=== PATIENT | male | born 1940 | race Caucasian/White ===

== ENCOUNTER 2019-01-30 16:41 | Inpatient (IN) | payer OTHER ==
[2019-01-30 18:20] LABS: Absolute Lymphocytes (CBC) 1.1 K/uL (0.7-4.9); Absolute Monocytes 0.7 K/uL (0.1-1.3); Absolute Neutrophil 11.4 K/uL (1.8-8.0); Basophils % 0.4 % (0-1.3); Eosinophils % 0.4 % (0-4.4); Lymphocytes % 8.3 % (15.3-44.8); MPV 8.7 fL (7.6-11.3); Monocytes % 5.3 % (3.3-12.3); RBC Red Blood Cell Count 4.99 M/uL (4.33-5.43)
--- NOTE | 2019-01-30 18:24 | RAD REPORT ---
EXAM DESCRIPTION: Joce Noriega (2 Views)01/30/2019 6:02 pm CLINICAL HISTORY: Fever COMPARISON: None FINDINGS: The lungs appear clear of acute infiltrate. The heart is normal size IMPRESSION: No acute abnormalities displayed
[2019-01-30 18:40] LABS: Albumin 3.9 g/dL (3.4-5.0); Bilirubin Total 0.5 mg/dL (0.2-1.0); Potassium 4.1 mmol/L (3.5-5.1); Protein, Total 8.1 g/dL (6.4-8.2)
[2019-01-30 18:41] LABS: Blood Morphology Comment NOT SEEN (NOT SEEN); Platelet Estimate ADEQ; Urine White Blood Cell Casts OK
[2019-01-30] MEDS ORDERED: ACETAMINOPHEN 325 MG TABLET ONE (19:24)
[2019-01-30] MEDS ORDERED: NA CHLORIDE 0.9% 1,000 ML ONE (19:27)
[2019-01-30 20:02] LABS: Urine Bacteria 20-50 /HPF (NONE SEEN); Urine Culture Reflex Order NOT NEEDED; Urine Mucus 2+ /HPF (NONE SEEN)
[2019-01-30 20:34] LABS: Urine Color YELLOW
[2019-01-30] MEDS ORDERED: CEFTRIAXONE/SWI 1gm 1 GM/10 ML SYR ONE (20:34)
[2019-01-30 20:35] LABS: Urine Appearance CLOUDY; Urine Bilirubin NEGATIVE (NEG); Urine Blood 1+ (NEG); Urine Glucose NEGATIVE (NEG); Urine Microscopic Reflex ORDER UMIC; Urine Protein 1+ (NEG); Urine Urobilinogen 0.2 mg/dL (0.2-1.0)
--- NOTE | 2019-01-30 22:07 | EDPHYS ---
Physician Documentation [facility] Name: Jc Sarabia Age: 78 yrs Sex: Male : 1940 Arrival Date: 01/30/2019 Time: 16:45 Bed 17 Private MD: ED Physician Angel Madsen HPI: 01/30 17:19 This 78 yrs old Male presents to ER via Ambulatory with complaints of Flu jmm Symptoms. 17:19 The patient reports fever, that was measured at 100.5 degrees Fahrenheit. Onset: The jmm symptoms/episode began/occurred today. Associated signs and symptoms: Pertinent positives: backache, chills, headache. This is a 78 year old male with a history of htn that presents to the ED with complaints of back pain, headache, fever beginning today. Denies vomiting, denies diarrhea, denies abdominal pain. Denies cough. . Historical: - Allergies: 16:51 No Known Allergies; sv - PMHx: 16:51 Hypertension; sv - PSHx: 16:51 Hernia repair; SINUS SX; Appendectomy; sv - Immunization history:: Adult Immunizations up to date. - Social history:: Smoking status: Patient/guardian denies using tobacco. - Ebola Screening: : Patient negative for fever greater than or equal to 101.5 degrees Fahrenheit, and additional compatible Ebola Virus Disease symptoms. ROS: 17:19 Cardiovascular: Negative for chest pain, palpitations, and edema, Respiratory: Negative jmm for shortness of breath, cough, wheezing, and pleuritic chest pain, Abdomen/GI: Negative for abdominal pain, nausea, vomiting, diarrhea, and constipation. 17:19 Constitutional: Positive for body aches, fever. 17:19 Back: Positive for pain with movement. 17:19 Neuro: Positive for headache. 17:19 All other systems are negative. Exam: 17:19 Constitutional: This is a well developed, well nourished patient who is awake, alert, jmm and in no acute distress. Head/Face: atraumatic. Eyes: EOMI, no conjunctival erythema appreciated ENT: Moist Mucus Membranes Neck: Trachea midline, Supple Chest/axilla: Normal chest wall appearance and motion. Cardiovascular: Regular rate and rhythm. No edema appreciated Respiratory: Normal respirations, no respiratory distress appreciated 17:19 Abdomen/GI: Inspection: abdomen appears normal, Bowel sounds: normal, Palpation: abdomen is soft and non-tender. 17:19 Back: ROM is normal. 17:19 Musculoskeletal/extremity: ROM: intact in all extremities. 17:19 Skin: Appearance: Color: normal in color. 17:19 Neuro: Orientation: is normal, Mentation: is normal, Memory: is normal. 17:19 Psych: Behavior/mood is pleasant, cooperative. Vital Signs: 16:51 BP 128 / 88; Pulse 118; Resp 18; Temp 98.3(O); Pulse Ox 95% ; Weight 88.45 kg; Height 5 sv ft. 9 in. (175.26 cm); Pain 3/10; 19:50 BP 134 / 78; Pulse 93; Resp 22; Temp 99.0; Pulse Ox 99% on R/A; aj 21:26 BP 129 / 79; Pulse 82; Resp 17; Pulse Ox 98% on R/A; aj 21:55 BP 125 / 73; Pulse 80; Resp 17 S; Pulse Ox 97% on R/A; jd3 22:46 BP 138 / 84; Pulse 81; Resp 16 S; Pulse Ox 98% on R/A; Pain 0/10; jd3 23:50 BP 105 / 75; Pulse 86; Resp 16 S; Pulse Ox 96% on R/A; jd3 16:51 Body Mass Index 28.80 (88.45 kg, 175.26 cm) sv MDM: 17:47 Patient medically screened. [facility] 21:59 Data reviewed: vital signs, nurses notes. Data reviewed: lab test result(s), radiologic [facility] studies, CT scan. Counseling: I had a detailed discussion with the patient and/or guardian regarding: the historical points, exam findings, and any diagnostic results supporting the discharge/admit diagnosis, lab results, radiology results. ED course: I discussed the patient with Dr. Rdz whom accepted admission. . 01/30 17:17 Order name: Flu; Complete Time: 17:55 01/30 17:17 Order name: Strep; Complete Time: 17:47 01/30 17:44 Order name: Throat Culture [facility] 01/30 17:48 Order name: CBC with Diff; Complete Time: 18:42 [facility] 01/30 17:48 Order name: CMP; Complete Time: 18:42 [facility] 01/30 17:48 Order name: Procalcitonin; Complete Time: 18:53 [facility] 01/30 17:48 Order name: Chest Pa And Lat (2 Views) XRAY; Complete Time: 18:42 [facility] 01/30 17:55 Order name: Garfield Screen Profile; Complete Time: 18:42 [facility] 01/30 18:43 Order name: CBC Smear Scan; Complete Time: 18:42 [facility] 01/30 19:30 Order name: Urine Culture 01/30 19:30 Order name: Urine Microscopic Only; Complete Time: 20:06 01/30 19:39 Order name: UA; Complete Time: 21:16 01/30 20:18 Order name: Blood Culture Adult (2) [facility] 01/30 20:19 Order name: Blood Culture [facility] 01/30 17:48 Order name: Saline Lock; Complete Time: 18:06 [facility] 01/30 20:17 Order name: CT Stone Protocol [facility] Administered Medications: 19:11 Drug: Tylenol 650 mg Route: PO; aj 21:50 Follow up: Response: No adverse reaction jd3 19:15 Drug: NS 0.9% 1000 ml Route: IV; Rate: 1 bolus; Site: right antecubital; aj 20:10 Follow up: Response: No adverse reaction; IV Status: Completed infusion; IV Intake: jd3 1000ml 20:30 Drug: Rocephin - (cefTRIAXone) 1 grams Route: IVPB; Infused Over: 30 mins; Site: right aj antecubital; 21:15 Follow up: Response: No adverse reaction; IV Status: Completed infusion jd3 Disposition: 01/30/19 22:06 Hospitalization ordered by Aryan Rdz for Inpatient Admission. Preliminary diagnosis are Acute Pyelonephritis, Acute Kidney Injury. - Bed requested for Telemetry/MedSurg (Inpatient). - Status is Inpatient Admission. jd3 - Condition is Stable. - Problem is new. - Symptoms have improved. UTI on Admission? Yes Addendum: 02/02/2019 07:02 Co-signature as Attending Physician, Angel Madsen MD I agree with the assessment and k dr plan of care. Signatures: Dispatcher [employer] [facility] Annalise Krishna RN RN sv Myers, Amanda, RN RN aj Rittger, Kevin, MD MD kdr Mickail, Joel, PA PA [facility] Aleah Veliz, RN RN cg Cali Bolaños RN RN jd3 Corrections: (The following items were deleted from the chart) 01/30 23:13 22:06 Hospitalization Ordered by Aryan Rdz MD for Inpatient Admission. Preliminary cg diagnosis is Acute Pyelonephritis; Acute Kidney Injury. Bed requested for Telemetry/MedSurg (Inpatient). Status is Inpatient Admission. Condition is Stable. Problem is new. Symptoms have improved. UTI on Admission? Yes. [facility] 01/31 00:16 01/30 23:13 01/30/2019 22:06 Hospitalization Ordered by Aryan Rdz MD for Inpatient jd3 Admission. Preliminary diagnosis is Acute Pyelonephritis; Acute Kidney Injury. Bed requested for Telemetry/MedSurg (Inpatient). Status is Inpatient Admission. Condition is Stable. Problem is new. Symptoms have improved. UTI on Admission? Yes. cg
--- NOTE | 2019-01-30 22:07 | ER ---
Nurse's Notes [facility] Name: Jc Sarabia Age: 78 yrs Sex: Male : 1940 Arrival Date: 01/30/2019 Time: 16:45 Bed 17 Private MD: Diagnosis: Acute Pyelonephritis;Acute Kidney Injury Presentation: 01/30 16:50 Presenting complaint: Patient states: abd cramping, cough, chills, fever TMax 100.5 sv since today. Denies n/v. Transition of care: patient was not received from another setting of care. Onset of symptoms was January 30, 2019. Care prior to arrival: None. 16:50 Method Of Arrival: Ambulatory sv 16:50 Acuity: QUYEN 3 sv 21:56 Risk Assessment: Do you want to hurt yourself or someone else? Patient reports no jd3 desire to harm self or others. Initial Sepsis Screen: Does the patient meet any 2 criteria? No. Patient's initial sepsis screen is negative. Does the patient have a suspected source of infection? No. Patient's initial sepsis screen is negative. Triage Assessment: 16:50 General: Appears in no apparent distress. uncomfortable, Behavior is calm, cooperative, sv appropriate for age. General: Reports chills for 12-24 hours, fever for 12-24 hours. Pain: Complains of pain in abdomen Pain currently is 3 out of 10 on a pain scale. Quality of pain is described as crampy, Pain began this morning. Neuro: Level of Consciousness is awake, alert, obeys commands, Oriented to person, place, time, situation, Gait is steady. Respiratory: Reports cough that is non-productive, Respiratory effort is even, unlabored, Respiratory pattern is regular, symmetrical. GI: Patient currently denies nausea, vomiting. Historical: - Allergies: 16:51 No Known Allergies; sv - PMHx: 16:51 Hypertension; sv - PSHx: 16:51 Hernia repair; SINUS SX; Appendectomy; sv - Immunization history:: Adult Immunizations up to date. - Social history:: Smoking status: Patient/guardian denies using tobacco. - Ebola Screening: : Patient negative for fever greater than or equal to 101.5 degrees Fahrenheit, and additional compatible Ebola Virus Disease symptoms. Screenin:34 Abuse screen: Denies threats or abuse. Denies injuries from another. Nutritional aj screening: No deficits noted. Tuberculosis screening: No symptoms or risk factors identified. Fall Risk None identified. Assessment: 17:34 General: Appears in no apparent distress. comfortable, Behavior is calm, cooperative, aj appropriate for age. Pain: Denies pain. Neuro: Level of Consciousness is awake, alert, obeys commands, Oriented to person, place, time, situation, Appropriate for age. Respiratory: Airway is patent Respiratory effort is even, unlabored, Respiratory pattern is regular, symmetrical. Derm: Skin is intact, is healthy with good turgor, Skin is pink, warm \T\ dry. normal. 21:26 Reassessment: Patient appears in no apparent distress at this time. No changes from aj previously documented assessment. Patient and/or family updated on plan of care and expected duration. Pain level reassessed. Patient states feeling better. Patient states symptoms have improved. 21:54 Reassessment: Patient appears in no apparent distress at this time. Patient and/or jd3 family updated on plan of care and expected duration. Pain level reassessed. Patient is alert, oriented x 3, equal unlabored respirations, skin warm/dry/pink. Patient denies pain at this time. 22:46 Reassessment: Patient appears in no apparent distress at this time. Patient and/or jd3 family updated on plan of care and expected duration. Pain level reassessed. Patient is alert, oriented x 3, equal unlabored respirations, skin warm/dry/pink. Patient denies pain at this time. 23:49 Reassessment: Patient appears in no apparent distress at this time. Patient and/or jd3 family updated on plan of care and expected duration. Pain level reassessed. Patient is alert, oriented x 3, equal unlabored respirations, skin warm/dry/pink. report given to Dorothy SERRANO Patient denies pain at this time. Vital Signs: 16:51 BP 128 / 88; Pulse 118; Resp 18; Temp 98.3(O); Pulse Ox 95% ; Weight 88.45 kg; Height 5 sv ft. 9 in. (175.26 cm); Pain 3/10; 19:50 BP 134 / 78; Pulse 93; Resp 22; Temp 99.0; Pulse Ox 99% on R/A; aj 21:26 BP 129 / 79; Pulse 82; Resp 17; Pulse Ox 98% on R/A; aj 21:55 BP 125 / 73; Pulse 80; Resp 17 S; Pulse Ox 97% on R/A; jd3 22:46 BP 138 / 84; Pulse 81; Resp 16 S; Pulse Ox 98% on R/A; Pain 0/10; jd3 23:50 BP 105 / 75; Pulse 86; Resp 16 S; Pulse Ox 96% on R/A; jd3 16:51 Body Mass Index 28.80 (88.45 kg, 175.26 cm) sv ED Course: 16:45 Patient arrived in ED. mr 16:51 Triage completed. sv 16:52 Arm band placed on. sv 17:08 Alma Rosa Franco, RN is Primary Nurse. aj 17:18 Tra Funk PA is PHCP. jmm 17:18 Angel Madsen MD is Attending Physician. jmm 17:34 Patient has correct armband on for positive identification. aj 18:02 Chest Pa And Lat (2 Views) XRAY In Process Unspecified. EDMS 18:13 Initial lab(s) drawn, by me, sent to lab. Inserted saline lock: 20 gauge in right em1 antecubital area, using aseptic technique. Blood collected. 21:05 CT completed. Patient tolerated procedure well. Patient moved to CT via wheelchair. Patient moved back from CT. 21:06 CT Stone Protocol In Process Unspecified. EDMS 22:04 Aryan Rdz MD is Hospitalizing Provider. [facility] 23:51 No provider procedures requiring assistance completed. Patient admitted, IV remains in jd3 place. Administered Medications: 19:11 Drug: Tylenol 650 mg Route: PO; aj 21:50 Follow up: Response: No adverse reaction jd3 19:15 Drug: NS 0.9% 1000 ml Route: IV; Rate: 1 bolus; Site: right antecubital; aj 20:10 Follow up: Response: No adverse reaction; IV Status: Completed infusion; IV Intake: jd3 1000ml 20:30 Drug: Rocephin - (cefTRIAXone) 1 grams Route: IVPB; Infused Over: 30 mins; Site: right aj antecubital; 21:15 Follow up: Response: No adverse reaction; IV Status: Completed infusion jd3 Intake: 20:10 IV: 1000ml; Total: 1000ml. jd3 Outcome: 22:06 Decision to Hospitalize by Provider. alena 23:52 Admitted to Med/surg accompanied by tech, via wheelchair, room 225, with chart, Report jd3 called to Dorothy SERRANO 23:52 Condition: stable 23:52 Instructed on the need for admit, Demonstrated understanding of instructions. 01/31 00:16 Patient left the ED. kenyetta Signatures: Dispatcher [employer] EDAnnalise Lemon RN RN sv Myers, Amanda, RN RN aj Mickail, Joel, PA PA jmm Rivera, Diana mr Aaron, Patrick Mcmillan, Bart [facility] Cali Bolaños RN RN jd3 Corrections: (The following items were deleted from the chart) 01/30 16:53 16:51 BP 128 / 88; Pulse 118bpm; Resp 18bpm; Pulse Ox 95%; 88.45 kg; Height 5 ft. 9 sv in.; BMI: 28.8; Pain 3/10; sv
--- NOTE | 2019-01-30 22:58 | P.HP ---
Certification for Inpatient Patient admitted to: Inpatient With expected LOS: >2 Midnights Practitioner: I am a practitioner with admitting privileges, knowledge of patient current condition, hospital course, and medical plan of care. Services: Services provided to patient in accordance with Admission requirements found in Title 42 Section 412.3 of the Code of Federal Regulations Patient History Date of Service: 01/30/19 Reason for admission: pyelonephritis History of Present Illness: Mr Sarabia is a 78 years old male with history of HTN, who start this afternoon with chills, fever and lower abdominal pain. His max temp was 100.5 F. He denied nausea, vomiting or diarrhea. He also has been complaining of lower back pain, but no modification in intensity lately. He denied painful urination, change in color, odor or increasing frequency. Lab work remarkable for leukocytosis 13.4K, procalcitonin normal. Creatinine elevated 1.62 (baseline normal). Temp at arrival 99.0F. CT abd/pelvis remarkable for a non obsturective right kidney stone. also bilateral prinephric stranding and trace free fluid consistent with pyelonephritis. Allergies NK Allergy (Uncoded 10/05/15 10:43) Unknown Home medications list reviewed: Yes - Past Medical/Surgical History -: HTN -: hernia repair -: appendectomy -: sinus surgery - Family History Family History: Reviewed- Non-Contributory - Social History Smoking Status: Former smoker Alcohol use: Yes CD- Drugs: No Place of Residence: Home Review of Systems 10-point ROS is otherwise unremarkable Physical Examination - Physical Exam General: Alert, In no apparent distress HEENT: Atraumatic, PERRLA, Mucous membr. moist/pink, EOMI, Sclerae nonicteric Neck: Supple, 2+ carotid pulse no bruit, No LAD, Without JVD or thyroid abnormality Respiratory: Clear to auscultation bilaterally, Normal air movement Cardiovascular: Regular rate/rhythm, Normal S1 S2 Gastrointestinal: Normal bowel sounds, No tenderness Musculoskeletal: No tenderness Integumentary: No rashes Neurological: Normal speech, Normal strength at 5/5 x4 extr, Normal tone, Normal affect Lymphatics: No axilla or inguinal lymphadenopathy - Studies Laboratory Data (last 24 hrs) 01/30/19 18:10: Sodium 142, Potassium 4.1, BUN 23 H, Creatinine 1.62 H, Glucose 103, Total Bilirubin 0.5, AST 14 L, ALT 17, Alkaline Phosphatase 60 01/30/19 18:10: WBC 13.4 H, Hgb 13.7, Hct 42.0, Plt Count 215 Microbiology Data (last 24 hrs): 01/30/19 17:22 Nasopharnyx Influenza Type A Antigen Screen - Final 01/30/19 17:22 Nasopharnyx Influenza Type B Antigen Screen - Final 01/30/19 17:22 Throat Group A Streptococcus Rapid Screen - Final Assessment and Plan - Problems (Diagnosis) (1) Pyelonephritis Current Visit: Yes Status: Acute (2) HTN (hypertension) Current Visit: Yes Status: Acute Qualifiers: Hypertension type: essential hypertension Qualified Code(s): I10 - Essential (primary) hypertension (3) Acute renal injury Current Visit: Yes Status: Acute (4) Nephrolithiasis Current Visit: Yes Status: Acute - Plan Will admit the patient due to acute bilateral pyelonephritis. Will order empiric antibiotic treatment, blood and urine culture in process. Will continue fluid challenge for renal failure. - Advance Directives Does patient have a Living Will: No Does patient have a Durable POA for Healthcare: No - Code Status/Comfort Care Code Status Assessed: Yes Code Status: Full Code
[2019-01-31] MEDS ORDERED: TRAMADOL HCL 50 MG TAB PO PRN (00:10)
[2019-01-31] MEDS ORDERED: ONDANSETRON 4 MG/2 ML VIAL IV PRN (00:10)
[2019-01-31] MEDS: NA CHLORIDE 0.9% 1,000 ML IV SCH ×3 (00:54→21:39)
[2019-01-31] MEDS: ACETAMINOPHEN 500 MG TAB PO PRN (02:48)
[2019-01-31 06:04] LABS: Absolute Lymphocytes (CBC) 0.6 K/uL (0.7-4.9); Absolute Monocytes 0.8 K/uL (0.1-1.3); Basophils % 0.5 % (0-1.3); Eosinophils % 0.3 % (0-4.4); Hematocrit 35.3 % (39.6-49.0); Lymphocytes % 4.9 % (15.3-44.8); MPV 8.7 fL (7.6-11.3); Monocytes % 6.8 % (3.3-12.3); RBC Red Blood Cell Count 4.26 M/uL (4.33-5.43)
[2019-01-31 06:20] LABS: Potassium 3.8 mmol/L (3.5-5.1)
[2019-01-31] MEDS ORDERED: MAGNESIUM SULFATE 1 gm IVPB 1 GM/100 ML BAG IV ONE (08:00)
[2019-01-31] MEDS ORDERED: POTASSIUM 25 MEQ EFFERV TAB PO ONE (08:00)
[2019-01-31] MEDS ORDERED: HYDROCODONE/APAP 7.5/325 MG TAB PO PRN (08:09)
[2019-01-31] MEDS ORDERED: CEFTRIAXONE 1 GM/NS 50 ML 1 GM/50 ML BAG IV SCH (09:00)
[2019-01-31] MEDS: HEPARIN 5000 UNIT/ML 1 ML VIAL SQ SCH ×2 (09:09→22:01)
--- NOTE | 2019-01-31 12:30 | P.PN ---
Subjective Date of Service: 01/31/19 Primary Care Provider: Dr. Chappell Chief Complaint: pyelonephritis Subjective: Improving (Pain to the back improved.) Physical Examination - Vital Signs Temperature: 99.6 F Blood Pressure: 120/64 Pulse: 68 Respirations: 20 Pulse Ox (%): 98 - Physical Exam General: Alert, In no apparent distress, Cooperative HEENT: Atraumatic Neck: Supple Respiratory: Clear to auscultation bilaterally, Normal air movement Cardiovascular: Normal pulses, Regular rate/rhythm Gastrointestinal: Normal bowel sounds, Soft and benign, Non-distended, Tenderness (To the flank bilateral) Neurological: Normal speech, Normal strength at 5/5 x4 extr, Normal tone, Normal affect - Studies Laboratory Data (last 24 hrs) 01/30/19 18:10: Sodium 142, Potassium 4.1, BUN 23 H, Creatinine 1.62 H, Glucose 103, Total Bilirubin 0.5, AST 14 L, ALT 17, Alkaline Phosphatase 60 01/30/19 18:10: WBC 13.4 H, Hgb 13.7, Hct 42.0, Plt Count 215 Microbiology Data (last 24 hrs): 01/30/19 17:22 Nasopharnyx Influenza Type A Antigen Screen - Final 01/30/19 17:22 Nasopharnyx Influenza Type B Antigen Screen - Final 01/30/19 17:22 Throat Group A Streptococcus Rapid Screen - Final Medications List Reviewed: Yes Assessment & Plan Discharge Plan: Home Plan to discharge in: Greater than 2 days Physician Review Additional Text: Impression: Bilateral pyelonephritis with noted acute renal injury with nonobstructing right renal calculi Hypertension BPH Plan: Bilateral pyelonephritis with noted acute renal injury with nonobstructing right renal calculi: Continue with IV fluids and antibiotic therapy. No obstruction noted. Will check renal ultrasound to further evaluate. No obstruction identified. Will consult nephrology for further recommendation. Patient with BPH symptoms. Will start Flomax. Will check PSA. Will continue to monitor and reassess. Cultures obtained. Likely discharge in the next 48- 72 hr. Hypertension: Hold blood pressure medication. BPH: Will start Flomax. Will check PSA. Time Spent Managing Pts Care (In Minutes): 55
--- NOTE | 2019-01-31 15:15 | CON ---
Date of Consultation: 01/31/2019 Additional Consulting Physician: Dr. Lake. Reason For Consultation: Elevated BUN and creatinine, hypertension. History Of Present Illness: This is a pleasant 78-year-old gentleman with significant past medical h istory of only hypertension for the last 15 years. According to the patient, the patient followed up with Dr. Chappell who mentioned to him that he has some fluctuation in his kidney function few months ago, but he has been stable following with Dr. Chappell. Reviewing the record, it looked that his kidn ey function was completely normal back in 2015. The patient came to the hospital complaining from fe elizabeth and chills without any nausea and vomiting, found to have UTI. The patient also complaining from dysuria and nocturia. Over the night, the patient was started on IV fluid. The patient according to him, apparently, he ta eliz nonsteroid randomly just to maybe once a week, otherwise no other frequent intake. Allergies: NO KNOWN DRUG ALLERGIES. Review of Systems: Head and Neck: No red eye. No ear pain. GI: No nausea, no vomiting. : Has dysuria. Has nocturia. SLATE ROOFER: Not applicable. Respiratory: No shortness of breath. Cardiovascular: No chest pain. Endocrine: No polydipsia. Skin: No rash. Neuro: No neuropathy. Musculoskeletal: Has low back pain. Medications: Home medications include candesartan and chlorthalidone. Current medications in the hospital include ceftriaxone, hydrocodone, Zofran, and Flomax. Surgical History: Has knee surgery, has hydrocele, has appendectomy. Family History: Positive for renal cell resection. Physical Examination: Vital Signs: When I saw the patient, blood pressure 120/64, pulse of 68. Chest: Clear to auscultation. Heart: S1, S2. Regular. Abdomen: Soft, nontender. Extremities: No edema. Neurological: Oriented x3. Nonfocal. Laboratory Data: For the patient back in October 2015, H and H 14.1/43.4. Creatinine 1.08, BUN 22, GFR above 60. On admission, sodium 142, potassium 4.1, bicarb 28, BUN 23, creatinine 1.6, calcium 8 .7. Procalcitonin 0.3. Today, sodium 141, potassium 3.8, bicarb 25, BUN 29, creatinine 1.7, calcium of 8. WBC 11.4, H and H 12.2/35.3, platelets 175. Urinalysis, wbc 50, rbc of 20, +1 protein. Current Medications: In the hospital include IV fluid, Flomax, ceftriaxone, Tylenol, Zofran, magnesi um oxide, and pain medication. Assessment And Plan: 1.Acute kidney injury secondary to prerenal superimposed with chlorthalidone and angiotensin recepto r ranjit, still looks to me on the dry side. I am going to continue current hydration. We will get renal ultrasound and protein creatinine, and we will follow up. 2.Urinary tract infection. I agree with current antibiotic. We will follow up culture. 3.Hypertension, currently hypotension. Hold all blood pressure medication given the acute kidney in jury. 4.Urosepsis, as above. ALFONSO Voice ID: [id number] Report ID: [id number]
--- NOTE | 2019-01-31 18:42 | RAD REPORT ---
EXAM DESCRIPTION: US - Renal Ultrasound-Complete - 01/31/2019 6:34 pm CLINICAL HISTORY: B. Pyelonephritis, suspect BPH COMPARISON: ABDOMINAL EXAM COMPLETE dated 09/19/2015ABDOMINAL EXAM COMPLETE dated 09/19/2015; Stone Pr otocol dated 01/30/2019 FINDINGS: Both kidneys are normal in size, shape and echotexture. The right kidney measures 11.5 x 5.5 x 5.5 cm. No hydronephrosis, focal mass or perinephric fluid. Se veral benign right renal cysts, largest measuring 3.6 cm. The left kidney measures 11.3 x 6.7 x 6.0 cm. No hydronephrosis, focal mass or perinephric fluid. The urinary bladder is incompletely distended without gross abnormality seen. IMPRESSION: Benign right renal cysts, otherwise negative study.
[2019-01-31 18:52] LABS: Urine Protein/Creatinine Ratio 0.4 ratio (<0.15)
[2019-01-31] MEDS: CEFTRIAXONE/SWI 1gm 1 GM/10 ML SYR IV SCH (22:00)
[2019-01-31] MEDS: TAMSULOSIN 0.4 MG SR CAP PO SCH (22:00)
[2019-02-01 06:04] LABS: Absolute Lymphocytes (CBC) 1.2 K/uL (0.7-4.9); Absolute Monocytes 0.6 K/uL (0.1-1.3); Absolute Neutrophil 3.6 K/uL (1.8-8.0); Eosinophils % 5.6 % (0-4.4); Hematocrit 31.6 % (39.6-49.0); Lymphocytes % 21.1 % (15.3-44.8); Monocytes % 9.7 % (3.3-12.3); RBC Red Blood Cell Count 3.76 M/uL (4.33-5.43)
[2019-02-01 06:09] LABS: Magnesium 2.2 mg/dL (1.8-2.4); Potassium 4.1 mmol/L (3.5-5.1)
--- NOTE | 2019-02-01 08:55 | P.PN ---
Subjective Date of Service: 02/01/19 Primary Care Provider: Dr. Chappell Chief Complaint: pyelonephritis Subjective: Doing well, Other (Patient much improved. Patient ambulating well. No pain noted.) Physical Examination - Vital Signs Temperature: 97.1 F Blood Pressure: 122/67 Pulse: 63 Respirations: 16 Pulse Ox (%): 96 - Physical Exam General: Alert, In no apparent distress, Oriented x3, Cooperative HEENT: Atraumatic Neck: Supple Respiratory: Clear to auscultation bilaterally, Normal air movement Cardiovascular: No edema, Normal pulses, Regular rate/rhythm Gastrointestinal: Normal bowel sounds, Soft and benign, Non-distended, No tenderness, No masses, No rebound, No guarding Musculoskeletal: No erythema, No tenderness, No warmth Integumentary: No tenderness/swelling, No erythema, No warmth, No cyanosis Neurological: Normal speech, Normal strength at 5/5 x4 extr, Normal tone, Normal affect - Studies Microbiology Data (last 24 hrs): 01/30/19 17:22 Throat Culture & Sensitivity - Final NORMAL UPPER RESPIRATORY REGINO GROWN. 01/30/19 19:40 Clean Catch Urine [place] Count - Final 01/30/19 19:40 Clean Catch Urine - Final No growth. Medications List Reviewed: Yes Assessment & Plan Discharge Plan: Home Plan to discharge in: 24 Hours Physician Review Additional Text: Impression: Bilateral pyelonephritis with noted acute renal injury likely secondary to pre renal/omtqhvclwn-rmjvyudddxuezd-Edz inhibitor with nonobstructing right renal calculi Hypertension BPH Plan: Bilateral pyelonephritis with noted acute renal injury likely secondary to pre renal/emguwmmejc-bntegdvevbhmhi-Qzc inhibitor with nonobstructing right renal calculi: Continue with IV fluids and antibiotic therapy. Await urine culture results. So far negative. Patient significantly improved. Patient without pain. No obstruction identified. Blood pressure remained stable off chlorthalidone and Arb inhibitor. Continue monitor closely. Renal function remains abnormal. Patient desires to go home soon. Will discuss with nephrology. Likely discharge in the next 24 to 48 hr with improvement of renal function. Will continue with Flomax. Patient will require Urology evaluation as an outpatient. I will turn the service over to Dr. Nur tomorrow. I will go over the plan of care with her. Hypertension: Continue to hold chlorthalidone and Arb inhibitor. Blood pressure stable off medication. BPH: Continue with Flomax. PSA unremarkable. Patient will require Urology evaluation as an outpatient. Time Spent Managing Pts Care (In Minutes): 55
[2019-02-01] MEDS: HEPARIN 5000 UNIT/ML 1 ML VIAL SQ SCH ×2 (09:33→21:33)
[2019-02-01] MEDS: NA CHLORIDE 0.9% 1,000 ML IV SCH ×3 (09:33→18:18)
--- NOTE | 2019-02-01 18:38 | PN ---
Date of Progress Note: 02/01/2019 Subjective: The patient was admitted with acute kidney injury. All workup so far negative. The pat ient was started on IV hydration. Physical Examination: Vital Signs: Blood pressure 122/67, pulse of 63, afebrile. The patient had good urine output of 950 . Chest: Clear to auscultation. Heart: S1, S2. Systolic murmur. Abdomen: Soft, nontender. Extremities: No edema. Neuro: Alert, oriented x3. No focal. Skin: No rash. Laboratory Data: WBC 5.8, H and H 10.8/31.6, and platelet 156. Eosinophil 5.6. Elevated absolute c ount of eosinophil of 300. Sodium 145, potassium 4.1, bicarb 24, BUN 26, creatinine worsening to 2, GFR of 32, calcium 8.3, magnesium 2.2. Current Medications: Include ceftriaxone, Flomax, Tylenol, Zofran, IV fluid. Assessment And Plan: 1.Acute kidney injury. Normal size kidney. Obstruction has been ruled. 11.5 x 11.3 all the multip le cysts. Given the peripheral eosinophilia and the history of taking PPI and getting sick with it, I am going to send for urine eosinophil. Our primary diagnosis was secondary to chlorthalidone and A RB, but the patient is not showing improvement with the IV fluid. I am going to go ahead and send fo r full serology also and we will follow up. 2.Hypertension, controlled, optimal. Continue current medication. 3.Gastroenteritis. Keep holding PPI for the time being. Continue hydration. ALFONSO Voice ID: [id number] Report ID: [id number]
[2019-02-01] MEDS: TAMSULOSIN 0.4 MG SR CAP PO SCH (21:32)
[2019-02-01] MEDS: CEFTRIAXONE/SWI 1gm 1 GM/10 ML SYR IV SCH (21:32)
[2019-02-02] MEDS: NA CHLORIDE 0.9% 1,000 ML IV SCH (04:31)
[2019-02-02 06:25] LABS: Absolute Lymphocytes (CBC) 1.1 K/uL (0.7-4.9); Absolute Monocytes 0.4 K/uL (0.1-1.3); Absolute Neutrophil 2.8 K/uL (1.8-8.0); Eosinophils % 4.8 % (0-4.4); Hematocrit 32.4 % (39.6-49.0); Lymphocytes % 24.5 % (15.3-44.8); MPV 8.9 fL (7.6-11.3); Monocytes % 8.9 % (3.3-12.3); RBC Red Blood Cell Count 3.86 M/uL (4.33-5.43)
[2019-02-02] MEDS: ACETAMINOPHEN 500 MG TAB PO PRN (06:29)
[2019-02-02 06:39] LABS: Albumin 2.9 g/dL (3.4-5.0); Magnesium 2.1 mg/dL (1.8-2.4); Phosphorus 2.8 mg/dL (2.5-4.9); Potassium 3.9 mmol/L (3.5-5.1)
[2019-02-02] MEDS: HEPARIN 5000 UNIT/ML 1 ML VIAL SQ SCH (09:00)
--- NOTE | 2019-02-02 11:53 | RAD REPORT ---
EXAM DESCRIPTION: Stone Protocol CLINICAL HISTORY: 78 years Male BACK PAIN, UTI, fever TECHNIQUE: Contiguous axial images obtained through the abdomen and pelvis without IV contrast. Co villa and sagittal reformatted images provided. This CT exam was performed according to our departmental dose-optimization program, which includes on e or more of the following dose reduction techniques: automated exposure control, adjustment of the m A and/or kV according to patient size, and/or use of iterative reconstruction technique. COMPARISON: No prior exams provided for comparison. FINDINGS: Stable 4 mm nonobstructing calculus in the midpole of the left kidney. There are no other renal, ureteral, or bladder calculi. New since the prior exam is bilateral perinephric stranding with out loculated fluid collection. Small bilateral renal cysts again seen. Trace free fluid in the pelvis new since the prior exam. The urinary bladder is collapsed. Mild promi nence of the prostate. Prior appendectomy. There is no bowel inflammation, obstruction, free intraperitoneal air, or ascites . Evidence of prior granulomatous disease in the chest and spleen. Minimal bibasilar scarring vs. atele ctasis. The unenhanced liver, biliary tree, gallbladder, and pancreas are normal. Stable low-attenuation thickening of the adrenal glands, likely benign. Mild atherosclerosis without abdominal aortic aneurysm or acute retroperitoneal hemorrhage. No acute osseous abnormality. IMPRESSION: Stable single nonobstructing intrarenal calculus on the right. No urinary obstruction. New bilateral perinephric stranding and trace free fluid in the pelvis. Correlation with urinalysis r ecommended to exclude infection. Mild prominence of the prostate. Electronically signed by: Elma Euceda MD 01/30/2019 9:16 PM CDT Due to temporary technical issues with the PACS/Fluency reporting system, reports are being signed by the in house radiologist as a courtesy to ensure prompt reporting. The interpreting radiologist is f ully responsible for the content of the report.
--- NOTE | 2019-02-02 17:26 | P.DS ---
Admission Date: 01/30/19 Discharge Date: 02/02/19 Primary Care Provider: Dr. Chappell Disposition: ROUTINE DISCHARGE Discharge Condition: GOOD Reason for Admission: pyelonephritis Consultations: Nephrology - Problems (1) Acute renal injury Status: Acute (2) Pyelonephritis Status: Acute (3) HTN (hypertension) Status: Acute Qualifiers: Hypertension type: essential hypertension Qualified Code(s): I10 - Essential (primary) hypertension Brief History of Present Illness: Mr Sarabia is a 78 years old male with history of HTN, who start this afternoon with chills, fever and lower abdominal pain. His max temp was 100.5 F. He denied nausea, vomiting or diarrhea. He also has been complaining of lower back pain, but no modification in intensity lately. He denied painful urination, change in color, odor or increasing frequency. Lab work remarkable for leukocytosis 13.4K, procalcitonin normal. Creatinine elevated 1.62 (baseline normal). Temp at arrival 99.0F. CT abd/pelvis remarkable for a non obsturective right kidney stone. also bilateral prinephric stranding and trace free fluid consistent with pyelonephritis. Hospital Course: Overall during the hospital stay patient remained stable Patient was initially admitted to the hospital for acute kidney injury along with high arthritis. Patient had urine culture collected here in the hospital which was negative for any growth. Initially patient also had elevated creatinine and was kept on IV fluids here in the hospital and chlorthalidone and Arb was discontinued. Patient had marked improvement in his creatinine and had improvement in his acute kidney injury. At that time patient was switched over to oral Augmentin and was discharged home under stable condition was asked to follow up with primary care provider along with nephrology. This patient was also asked to continue with discontinuation of his chlorthalidone and his Arb Vital Signs/Physical Exam: Temp Pulse Resp BP Pulse Ox 97.9 F 60 15 129/71 97 02/02/19 12:00 02/02/19 12:00 02/02/19 12:00 02/02/19 12:02/02/19 12:00 General: Alert, In no apparent distress HEENT: Atraumatic, PERRLA, EOMI Neck: Supple, JVD not distended Respiratory: Clear to auscultation bilaterally, Normal air movement Cardiovascular: Regular rate/rhythm, Normal S1 S2 Gastrointestinal: Normal bowel sounds, No tenderness Musculoskeletal: No tenderness Integumentary: No rashes Neurological: Normal speech, Normal tone, Normal affect Lymphatics: No axilla or inguinal lymphadenopathy Laboratory Data at Discharge: WBC 4.6 K/uL (4.3-10.9) D 02/02/19 05:49 Hgb 10.8 g/dL (13.6-17.9) L 02/02/19 05:49 Hct 32.4 % (39.6-49.0) L 02/02/19 05:49 Plt Count 179 K/uL (152-406) 02/02/19 05:49 Sodium 146 mmol/L (136-145) H 02/02/19 05:49 Potassium 3.9 mmol/L (3.5-5.1) 02/02/19 05:49 BUN 24 mg/dL (7-18) H 02/02/19 05:49 Creatinine 1.80 mg/dL (0.55-1.3) H 02/02/19 05:49 Glucose 82 mg/dL (74-106) 02/02/19 05:49 Phosphorus 2.8 mg/dL (2.5-4.9) 02/02/19 05:49 Magnesium 2.1 mg/dL (1.8-2.4) 02/02/19 05:49 Total Bilirubin 0.5 mg/dL (0.2-1.0) 01/30/19 18:10 AST 14 U/L (15-37) L 01/30/19 18:10 ALT 17 U/L (12-78) 01/30/19 18:10 Alkaline Phosphatase 60 U/L (45-117) 01/30/19 18:10 Home Medications: Amoxicillin/Potassium Clav [Augmentin 500-125 Tablet] 1 each PO DAILY #7 tablet 02/02/19 New Medications: Amoxicillin/Potassium Clav [Augmentin 500-125 Tablet] 1 each PO DAILY #7 tablet Patient Discharge Instructions: Please f.u with PCP and Nephrology in 1 to 2 week post discharge. New medication. Augmentin 500mg q24h Daily Diet: Regular Activity: Ad barak Followup: Rufina Lim MD [ACTIVE - CAN ADMIT] - 1 Week
--- NOTE | 2019-02-03 02:04 | PN ---
Date of Progress Note: 02/02/2019 Chief Complaint: Acute kidney injury. History Of Present Illness: Acute kidney injury, nonoliguric, moderately severe. Creatinine level w as elevated with high BUN and creatinine ratio and borderline hypernatremia. The patient was started on IV fluids for hypovolemia and mild dehydration. The patient had kidney ultrasound done, which di d not show obstructive uropathy. There were multiple kidney cysts. 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 The patient was taken off angiotensin receptor ranjit and chlorthalidone wa s stopped to prevent renal hypoperfusion and renal function has improved somewhat with IV fluids and modification of the treatment. The patient was started on Flomax to control lower urinary tract symptoms and prevent urinary frequen cy, although there was no hydronephrosis visible on kidney ultrasound. Review of Systems: Denies fever, chills. Physical Examination: Lungs: Clear to auscultation bilaterally. Heart: S1, S2. Blood pressure is 122/60, heart rate 60. Abdomen: Soft, benign, nontender. No CVA tenderness. Extremities: No edema. Cardiovascular: S1, S2. Systolic murmur 2/6 left lower sternal border. Laboratory Data: Hemoglobin 10.8, WBC 4.6, platelet count is 179,000, neutrophils 2.8. Eosinophils 0.2, which is at this point stabilizing with absolute eosinophil level being at normal range. Chemis tries showed sodium 146, potassium 3.9, chloride 114, CO2 25, BUN 24, creatinine 1.8, albumin 2.9. U rinalysis showed rbc's from 10-20, WBC from 20-50. Proteinuria screen is pending. Protein creatinin e ratio was 0.4 and serology test pending to rule out vasculitis. Impression And Plan: 1.Acute on chronic kidney injury. The patient responded to IV fluids. The patient has nonoliguric urine output. He is requesting to be discharged to home. Plan is to continue adequate hydration by mouth and to replace angiotensin receptor ranjit with calcium channel ranjit for blood pressure con trol. The patient will continue Flomax for lower urinary tract symptoms. 2.Hypertension. Continue blood pressure medication, currently blood pressure in good control. 3.History of gastroenteritis. The patient will continue hydration and monitor fluid balance. 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 The patient wants to follow up with Nephr ology outpatient. EVA/HUNG Voice ID: [id number] Report ID: [id number]
[2019-02-03 23:46] LABS: Rheumatoid Factor NEG (NEG)
[2019-02-04 18:06] LABS: Hepatitis C Virus RNA (PCR)log <1.18 log IU/mL
[2019-02-04 20:15] LABS: HIV AG/AB 4TH GEN Non-reactive (Non-reactive)
[2019-02-06 02:53] LABS: HBsAG Nonreactive (Nonreactive)
[2019-02-06 08:27] LABS: P-ANCA Anti-Myeloperoxidase Ab <1.0 AI (<1.0)
[2019-02-06 23:13] LABS: Alpha-1-Globulins 0.3 g/dL (0.2-0.3); Alpha-2-Globulins 0.7 g/dL (0.5-0.9); Gamma Globulins 1.2 g/dL (0.8-1.7); INTERPRETATION REPORT
== END 2019-02-02 14:49 | disposition home or self-care (01) | DRG 690 ==
LOC: ER 16:41 → ERHOLD 22:54 → 2ND 23:59
PROVIDERS: ADMIT Internal Medicine; ATTEND Internal Medicine
DX: N10 Acute pyelonephritis (principal); N17.9 Acute kidney failure, unspecified; I10 Essential (primary) hypertension; K52.9 Noninfective gastroenteritis and colitis, unspecified; N20.0 Calculus of kidney; Z87.891 Personal history of nicotine dependence
CPT/HCPCS: 36415; 71046; 74176; 76377; 76770; 80048; 80053; 80069; 81003; 81015; 82570; 83520; 83735; 84145; 84156; 84165; 85025; 86021; 86038; 86160; 86225; 86308; 86317; 86430; 86704; 86706; 87040; 87070; 87081; 87086; 87088; 87340; 87389; 87522; 87804; 96361; 96365; 99285; J0696; J1644; J2405; J3475; J7030

== ENCOUNTER 2021-06-02 08:16 | Inpatient (IN) | payer OTHER ==
[2021-06-02 09:16] LABS: Absolute Lymphocytes (CBC) 1.5 K/uL (0.7-4.9); Basophils % 1.3 % (0-1.3); Hematocrit 40.1 % (39.6-49.0); Lymphocytes % 20.1 % (15.3-44.8)
[2021-06-02 09:26] LABS: Urine Blood Negative (Negative); Urine Glucose Negative (Negative); Urine Protein Negative (Negative); Urine Specific Gravity 1.025 (1.005-1.030)
[2021-06-02 09:33] LABS: Albumin 3.9 g/dL (3.4-5.0); Bilirubin Direct 0.1 mg/dL (0-0.2); Bilirubin Total 0.5 mg/dL (0.2-1.0); Potassium 4.1 mmol/L (3.5-5.1)
[2021-06-02 09:34] LABS: Urine Bacteria NONE SEEN /HPF (NONE SEEN); Urine RBC NONE SEEN /HPF (NONE SEEN)
--- NOTE | 2021-06-02 09:45 | RAD REPORT ---
EXAM DESCRIPTION: CTAngio Aorta For Dissection - 06/02/2021 9:29 am CLINICAL HISTORY: left flank pain/shoulder pain/chest pain COMPARISON: Stone Protocol dated 01/30/2019; MRI THORACIC SPINE W O CO dated 01/09/2012 TECHNIQUE: CT of the chest, abdomen, and pelvis was performed. All CT scans are performed using dose optimization technique as appropriate and may include automated exposure control or mA/KV adjustment according to patient size. FINDINGS: Thorax: Chest Wall: No abnormal mass Lungs: No acute abnormality. Pleura: No effusions or pneumothorax. Connie/Mediastinum: No lymphadenopathy. Calcified mediastinal and hilar lymph nodes. Small hiatal herni a. Thoracic Aorta: Mild aneurysmal dilatation of the ascending thoracic aorta measuring 4.1 cm. Aorta/Pulmonary Arteries: Limited evaluation of the pulmonary arteries. Heart: Normal size. Abdomen/Pelvis: Liver: No acute abnormality or suspicious lesions. Biliary: No biliary ductal dilatation. Stomach: No significant focal abnormality. Duodenum: No significant focal abnormality. Pancreas: No significant abnormality. Spleen: No significant abnormality. Adrenal: No suspicious lesions. Kidney/ureter: No hydronephrosis. 3 mm left renal calculus. 3 mm right renal calculus in the lower po le. Too small to characterize and/or benign appearing renal lesions are noted. Retroperitoneum: No retroperitoneal adenopathy. Vascular: No aneurysm. Bowel: No significant focal abnormality. Peritoneum: No ascites or free air. Bladder: Grossly unremarkable. Reproductive: Mild prostatomegaly. Bones: Mild remote appearing compression deformities at T2 and T3, favored remote. 14 millimeters ind eterminate mildly sclerotic lesion in T5 was present on the MRI from 01/09/2012 and is benign. There are a couple of tiny sclerotic foci in the pelvis that are likely bone islands. Other: n/a IMPRESSION: No acute findings within the chest, abdomen, or pelvis. Specifically, no evidence of aor tic dissection/acute aortic syndrome. Ascending thoracic aortic aneurysm measuring 4.1 cm.
[2021-06-02 10:29] LABS: Troponin I 0.13 ng/mL (0.0-0.045)
--- NOTE | 2021-06-02 11:08 | ER ---
Nurse's Notes [facility] Name: Jc Sarabia Age: 81 yrs Sex: Male : 1940 Arrival Date: 06/02/2021 Time: 08:22 Bed 24 Private MD: Diagnosis: Non ST elevation [facility] Presentation: 06/02 08:26 Chief complaint: Patient states: L trunk pain off/on since Saturday. Pain into L shoulder ll1 and back at times. Coronavirus screen: Vaccine status: Patient reports receiving the 2nd dose of the covid vaccine. Client denies travel out of the [place] in the last 14 days. At this time, the client does not indicate any symptoms associated with coronavirus-19. Ebola Screen: Patient denies travel to an Ebola-affected area in the 21 days before illness onset. Initial Sepsis Screen: Does the patient meet any 2 criteria? No. Patient's initial sepsis screen is negative. Risk Assessment: Do you want to hurt yourself or someone else? Patient reports no desire to harm self or others. Onset of symptoms was May 29, 2021. 08:26 Method Of Arrival: Ambulatory ll1 08:26 Acuity: QUYEN 3 ll1 15:31 Initial Sepsis Screen: Does the patient have a suspected source of infection? No. oh Patient's initial sepsis screen is negative. Triage Assessment: 16:32 General: Appears in no apparent distress. Behavior is calm, cooperative, appropriate oh for age. Historical: - Allergies: 08:25 No Known Allergies; ll1 - PMHx: 08:25 Hypertension; ll1 - PSHx: 08:25 sinus SX; ll1 - Immunization history:: Client reports receiving the 2nd dose of the Covid vaccine, Flu vaccine is up to date. - Social history:: Smoking status: Patient denies any tobacco usage or history of. - Family history:: not pertinent. - Hospitalizations: : No recent hospitalization is reported. Screenin:30 Abuse screen: Denies threats or abuse. Nutritional screening: No deficits noted. oh Tuberculosis screening: No symptoms or risk factors identified. Fall Risk None identified. Assessment: 15:29 Pain: Complains of pain in left sided chest pain radiating to back. Neuro: Level of oh Consciousness is awake, alert. 15:38 Reassessment: Report given to ZACH Kemp. oh Vital Signs: 08:26 BP 139 / 90; Pulse 79; Resp 16; Temp 97.1; Pulse Ox 98% ; Weight 83.91 kg; Height 5 ft. ll1 9 in. (175.26 cm); Pain 1/10; 11:45 BP 144 / 77; Pulse 60; Resp 17; Pulse Ox 100% ; oh 15:36 BP 127 / 68; Pulse 61; Resp 17; Pulse Ox 100% on R/A; oh 08:26 Body Mass Index 27.32 (83.91 kg, 175.26 cm) ll1 ED Course: 08:22 Patient arrived in ED. am2 08:27 Triage completed. ll1 08:27 Arm band placed on Patient placed in an exam room, on a stretcher. ll1 08:28 Mirza Estes MD is Attending Physician. rn 08:40 Sudhir Martines RN is Primary Nurse. oh 09:25 Urine Culture Sent. oh 09:25 Urine Microscopic Only Sent. oh 09:29 CT Aorta for Dissection In Process Unspecified. EDMS 11:07 Gerhard Lake DO is Hospitalizing Provider. rn 11:20 Kayden Estes MD is Hospitalizing Provider. rn 11:28 Ptt, Activated Sent. oh 15:30 Bed in low position. Call light in reach. Side rails up X 1. oh 15:38 Inserted saline lock: 18 gauge in left antecubital area, using aseptic technique. Blood oh collected. 16:30 Ptt, Activated Sent. oh 16:30 PT-INR Sent. oh 16:32 No provider procedures requiring assistance completed. oh 16:32 Patient admitted, IV remains in place. oh Administered Medications: 11:09 Drug: Aspirin Chewable Tablet 324 mg Route: PO; oh 11:45 Drug: Heparin ([facility]-Bolus No thrombolytic) - HEParin 60 units/kg {Co-Signature: kh1 oh (Tali Huang).} Route: IVP; Site: left antecubital; 11:45 Drug: Heparin ([facility] Drip) 12 units/kg/hr - (HEParin 82862 units, D5W 500 ml) oh {Co-Signature: kh1 (Tali Huang).} Route: IV; Rate: calculated rate; Site: left antecubital; Outcome: 11:07 Decision to Hospitalize by Provider. rn 16:25 Patient left the ED. oh 16:31 Admitted to Med/surg oh 16:31 Admitted to Med/surg accompanied by tech, family with patient. 16:31 Condition: stable 16:31 Instructed on the need for admit. Signatures: Dispatcher [employer] EDMS Mirza Estes MD MD rn Moreno, Amanda am2 Eileen Chanel RN RN 1 Sudhir Martines RN RN vt Tali Huang [facility] Corrections: (The following items were deleted from the chart) 12:11 11:28 CORONAVIRUS+.JACY drawn and sent. vt EDCA 16:31 11:45 BP 127 / 68; Pulse 61bpm; Resp 17bpm; Pulse Ox 100% RA; oh oh
--- NOTE | 2021-06-02 11:08 | EDPHYS ---
Physician Documentation [facility] Name: Jc Sarabia Age: 81 yrs Sex: Male : 1940 Arrival Date: 06/02/2021 Time: 08:22 Bed 24 Private MD: ED Physician Mirza Estes HPI: 06/02 08:54 This 81 yrs old Male presents to ER via Ambulatory with complaints of Flank rn pain, Shoulder Pain. 08:54 The patient presents with abdominal pain Left-sided and left flank. Onset: The rn symptoms/episode began/occurred 3 day(s) ago. The symptoms radiate to the left shoulder. Associated signs and symptoms: Pertinent negatives: nausea and vomiting, blood in stools, chest pain, constipation, fever, hematuria, shortness of breath, testicular pain, vomiting, vomiting blood. The symptoms are described as achy. Modifying factors: The symptoms are alleviated by nothing, the symptoms are aggravated by nothing. Severity of pain: At its worst the pain was moderate in the emergency department the pain has improved. The patient has not experienced similar symptoms in the past. The patient has not recently seen a physician. Patient reports 3 days of intermittent left abdominal and left flank pain that radiates to left shoulder. Denies any other symptoms. Denies any pain with deep inspiration or cough. No chest pain. No fever/vomiting/diarrhea. Reports hurts most left lower flank. Denies any injury. States was mowing yesterday and did not have any pain during that time. Thought it was gas but not going away.. Historical: - Allergies: 08:25 No Known Allergies; ll1 - PMHx: 08:25 Hypertension; ll1 - PSHx: 08:25 sinus SX; ll1 - Immunization history:: Client reports receiving the 2nd dose of the Covid vaccine, Flu vaccine is up to date. - Social history:: Smoking status: Patient denies any tobacco usage or history of. - Family history:: not pertinent. - Hospitalizations: : No recent hospitalization is reported. ROS: 08:54 Constitutional: Negative for fever, chills, and weight loss, Eyes: Negative for injury, rn pain, redness, and discharge, Neck: Negative for injury, pain, and swelling, Cardiovascular: Negative for chest pain, palpitations, and edema, Respiratory: Negative for shortness of breath, cough, wheezing, and pleuritic chest pain, Abdomen/GI: Negative for nausea, vomiting, diarrhea, and constipation, Back: Positive for left flank pain : Negative for injury, bleeding, discharge, and swelling, MS/Extremity: Negative for injury and deformity, Skin: Negative for injury, rash, and discoloration, Neuro: Negative for headache, weakness, numbness, tingling, and seizure. 08:54 All other systems are negative. rn Exam: 08:54 Constitutional: This is a well developed, well nourished patient who is awake, alert, rn and in no acute distress. Ambulatory to room without difficulty or distress Head/Face: Normocephalic, atraumatic. Eyes: Periorbital areas with no swelling, redness, or edema. Cardiovascular: Regular rate and rhythm. No pulse deficits. Respiratory: No increased work of breathing, no retractions or nasal flaring. Abdomen/GI: Soft, non-tender. No distension. No guarding or rebound. No evidence of tenderness throughout. Back: No spinal tenderness. No costovertebral tenderness. Full range of motion. Skin: Warm, dry with normal turgor. Normal color with no rashes, no lesions, and no evidence of cellulitis. MS/ Extremity: Pulses equal, no cyanosis. Neurovascular intact. Full, normal range of motion. Equal circumference. Neuro: Awake and alert, GCS 15, oriented to person, place, time, and situation. Normal gait. 09:51 ECG was reviewed by the Attending Physician. rn Vital Signs: 08:26 BP 139 / 90; Pulse 79; Resp 16; Temp 97.1; Pulse Ox 98% ; Weight 83.91 kg; Height 5 ft. ll1 9 in. (175.26 cm); Pain 1/10; 11:45 BP 144 / 77; Pulse 60; Resp 17; Pulse Ox 100% ; oh 15:36 BP 127 / 68; Pulse 61; Resp 17; Pulse Ox 100% on R/A; oh 08:26 Body Mass Index 27.32 (83.91 kg, 175.26 cm) ll1 MDM: 08:28 Patient medically screened. rn 10:56 ED course: Patient pain-free at this time. CT aorta no acute findings. Troponin with rn mild elevation. Given intermittent pain/neck pain/shoulder pain on the left side with elevated troponin will anticoagulate and admit for stress test and possible heart cath. Currently patient pain-free.. 11:05 Differential diagnosis: non-specific abd pain, pancreatitis, NSTEMI, acute AL, aortic rn dissection. Data reviewed: vital signs, nurses notes, lab test result(s), EKG, radiologic studies, CT scan, and as a result, I will admit patient. Data interpreted: clinical research monitor: rate is 79 beats/min, rhythm is normal sinus rhythm, regular, with no ectopy, Interpretation: normal rate, normal rhythm, Pulse oximetry: on room air is 98 %. Interpretation: normal. Counseling: I had a detailed discussion with the patient and/or guardian regarding: the historical points, exam findings, and any diagnostic results supporting the discharge/admit diagnosis, lab results, radiology results, the need for further work-up and treatment in the hospital. Response to treatment: the patient's symptoms have markedly improved after treatment, and as a result, I will admit patient. 13:16 ED course: Patient has already been evaluated by Dr. Whitaker, agrees with continuation rn of heparin and serial troponin evaluation.. 06/02 08:40 Order name: Basic Metabolic Panel; Complete Time: 10:46 rn 06/02 08:40 Order name: CBC with Diff; Complete Time: 09:50 rn 06/02 08:40 Order name: Hepatic Function; Complete Time: 10:46 rn 06/02 08:40 Order name: Lipase; Complete Time: 10:46 rn 06/02 08:40 Order name: Urine Culture 06/02 08:40 Order name: Urine Microscopic Only; Complete Time: 09:50 06/02 09:26 Order name: Urine Dipstick-Ancillary; Complete Time: 09:50 EDWV 06/02 09:55 Order name: LAB Add On eb 06/02 10:10 Order name: Troponin I; Complete Time: 10:46 EDWV 06/02 11:16 Order name: Ptt, Activated; Complete Time: 12:54 iw 06/02 13:06 Order name: SARS-COV-2 RT PCR EDWV 06/02 14:32 Order name: T4 Free EDWV 06/02 14:32 Order name: Thyroid Stimulating Hormone EDWV 06/02 08:40 Order name: IV Saline Lock; Complete Time: 09:17 rn 06/02 08:40 Order name: Labs collected and sent; Complete Time: 09:17 rn 06/02 08:40 Order name: Urine Dipstick-Ancillary (obtain specimen); Complete Time: 09:25 rn 06/02 08:40 Order name: CT Aorta for Dissection; Complete Time: 09:50 rn 06/02 08:40 Order name: EKG; Complete Time: 08:40 rn 06/02 08:40 Order name: EKG - Nurse/Tech; Complete Time: 09:17 rn 06/02 15:55 Order name: Ptt, Activated oh 06/02 15:55 Order name: PT-INR oh EC:51 Rate is 66 beats/min. Rhythm is regular. QRS [place] is Normal. [place] interval is normal. QRS rn interval is normal. QT interval is normal. No Q waves. T waves are Normal. No ST changes noted. Clinical impression: Normal ECG. Interpreted by me. Reviewed by me. Administered Medications: 11:09 Drug: Aspirin Chewable Tablet 324 mg Route: PO; oh 11:45 Drug: Heparin (AL-Bolus No thrombolytic) - HEParin 60 units/kg {Co-Signature: kh1 oh (Tali Huang).} Route: IVP; Site: left antecubital; 11:45 Drug: Heparin (AL Drip) 12 units/kg/hr - (HEParin 84969 units, D5W 500 ml) oh {Co-Signature: kh1 (Tali Huang).} Route: IV; Rate: calculated rate; Site: left antecubital; Disposition Summary: 06/02/21 11:07 Hospitalization Ordered Hospitalization Status: Inpatient Admission rn [facility] rn Condition: Stable rn Problem: new rn Symptoms: have improved rn Bed/Room Type: Standard rn Provider: Kayden Estes(06/02/21 11:20) rn Room Assignment: 224(06/02/21 14:34) eb Diagnosis - Non ST elevation AL rn Forms: - Medication Reconciliation Form rn - SBAR form rn Signatures: Dispatcher [employer] Mirza Crowley MD MD rn Botello, Elizabeth eb Lewis, Lynsay RN RN ll1 Sudhir Martines, RN RN oh Tali Huang kh1 Corrections: (The following items were deleted from the chart) 08:58 08:54 Constitutional: This is a well developed, well nourished patient who is awake, rn alert, and in no acute distress. Ambulatory to room without difficulty or distress Head/Face: Normocephalic, atraumatic. Eyes: Periorbital areas with no swelling, redness, or edema. rn 11:20 11:07 Gerhard [place] rn rn 12:11 11:16 CORONAVIRUS+MR.LAB.BRZ ordered. EDMS EDMS 14:34 11:07 sulema ruano
[2021-06-02] MEDS ORDERED: ASPIRIN 81 MG CHEWABLE TABLET ONE (11:34)
[2021-06-02] MEDS ORDERED: HEPARIN 5000 UNIT/ML 1 ML VIAL ONE (11:58)
[2021-06-02] MEDS ORDERED: HEPARIN/D5W 25,000 UNIT/500 ML BAG IV ONE (11:59)
[2021-06-02] MEDS ORDERED: ONDANSETRON 4 MG/2 ML VIAL IV PRN (13:29)
[2021-06-02] MEDS ORDERED: ACETAMINOPHEN 500 MG TAB PO PRN (13:29)
[2021-06-02 13:55] VITALS: BMI 27.3
[2021-06-02 14:32] LABS: Thyroid Stimulating Hormone 2.81 uIU/mL (0.360-3.740)
--- NOTE | 2021-06-02 14:34 | P.HP ---
Certification for Inpatient Patient admitted to: Inpatient With expected LOS: <2 Midnights Patient will require the following post-hospital care: None Practitioner: I am a practitioner with admitting privileges, knowledge of patient current condition, hospital course, and medical plan of care. Services: Services provided to patient in accordance with Admission requirements found in Title 42 Section 412.3 of the Code of Federal Regulations Patient History Date of Service: 06/02/21 Primary Care Provider: Dr. Chappell Reason for admission: Atypical Chest Pain History of Present Illness: Patient is a 81-year-old white male with a history of hypertension. 5 days ago he began to get gas-like pain in his left abdomen which would radiate up into his left chest and sometimes his left shoulder. Initially the chest, rib, shoulder pain lasted just a few minutes and went away. These pains would occur a couple times a day. However last night at 11:30 PM he had an episode was quite painful, rated at 8/10. The pain lasted about 30 minutes. When it finally subsided he went to bed. He awoke at 630 with no chest or side pain at all but about 730 this morning the pain returned. He was concerned about possible heart problems and came into the emergency room at that time. Allergies No Known Allergies Allergy (Verified 01/31/19 00:25) Home Medications: Amoxicillin/Potassium Clav [Augmentin 500-125 Tablet] 1 each PO DAILY #7 tablet 02/02/19 - Past Medical/Surgical History Has patient received pneumonia vaccine in the past: Yes Diabetic: No -: HTN -: DVT right lower leg -: hernia repair -: appendectomy -: sinus surgery -: right knee surgery -: Tonsillectomy Psychosocial/ Personal History: Unemployed, living at home with his . - Social History Smoking Status: Former smoker (Stopped 40 years ago) Alcohol use: Yes CD- Drugs: No Caffeine use: Yes Place of Residence: Home Review of Systems General: Unremarkable Eyes: Unremarkable ENT: Unremarkable Respiratory: Other (Slight cough with allegies) Cardiovascular: Chest Pain Gastrointestinal: Unremarkable Genitourinary: Unremarkable Musculoskeletal: Unremarkable Integumentary: Unremarkable Neurological: Unremarkable Lymphatics: Unremarkable Physical Examination - Physical Exam General: Alert, In no apparent distress, Oriented x3, Cooperative HEENT: Atraumatic, Normocephalic, PERRLA Neck: Supple, JVD not distended Respiratory: Clear to auscultation bilaterally, Normal air movement Cardiovascular: No edema, Normal pulses, Regular rate/rhythm, Normal S1 S2 Capillary refill: Brisk Gastrointestinal: Normal bowel sounds, Soft and benign, Non-distended Musculoskeletal: No swelling, No contractures, No erythema, No tenderness Integumentary: No rashes, No breakdown, No significant lesion Neurological: Normal speech, Normal strength at 5/5 x4 extr, Normal tone, Sensation intact External genitalia: Deferred Rectal: Deferred - Studies Laboratory Data (last 24 hrs) 06/02/21 11:23: APTT 28.0 06/02/21 09:02: WBC 7.60, Hgb 13.7, Hct 40.1, Plt Count 236 06/02/21 09:02: Sodium 142, Potassium 4.1, BUN 20 H, Creatinine 1.16, Glucose 106, Total Bilirubin 0.5, AST 14 L, ALT 17, Alkaline Phosphatase 62, Troponin I 0.13 H, Lipase 158 Assessment and Plan - Plan Assessment: Chest Pain HTN Plan: Chest Pain: Per Dr. Whitaker pt to remain on Heparin. First Front Ventilator, O2 if needed. Trend Troponin, Echo if available before discharge. Follow up with cardiology next week for stress test. HTN:Metoprolol DVT PPx:Heparin CODE STATUS: Full Code Discharge Plan: Home Plan to discharge in: 48 Hours - Advance Directives Does patient have a Living Will: Yes Does patient have a Durable POA for Healthcare: Yes - Code Status/Comfort Care Code Status Assessed: Yes Code Status: Full Code Critical Care: No Time Spent Managing Pts Care (In Minutes): 70
[2021-06-02] MEDS ORDERED: INFLUENZA VACCINE (for 6+ mo) 0.5 ML DOSE IMVAC ONE (16:00)
[2021-06-02 16:27] LABS: Protime INR 1.09
[2021-06-02] MEDS ORDERED: HEPARIN 5000 UNIT/ML 1 ML VIAL SQ SCH (17:00)
[2021-06-02] MEDS ORDERED: HEPARIN/D5W 25,000 UNIT/500 ML BAG IV PRN (17:00)
[2021-06-02] MEDS: METOPROLOL TAR 25 MG TAB PO SCH (17:27)
[2021-06-03 04:18] LABS: Absolute Lymphocytes (CBC) 2.3 K/uL (0.7-4.9); Basophils % 1.1 % (0-1.3); Hematocrit 39.6 % (39.6-49.0); Lymphocytes % 31.9 % (15.3-44.8); MPV 8.8 fL (7.6-11.3); RBC Red Blood Cell Count 4.69 M/uL (4.33-5.43)
[2021-06-03 04:38] LABS: Albumin 3.5 g/dL (3.4-5.0); Bilirubin Total 0.4 mg/dL (0.2-1.0); Magnesium 2.2 mg/dL (1.8-2.4); Potassium 4.6 mmol/L (3.5-5.1); Protein, Total 7.6 g/dL (6.4-8.2)
[2021-06-03] MEDS: METOPROLOL TAR 25 MG TAB PO SCH (05:40)
[2021-06-03 08:36] VITALS: O2SAT 100
[2021-06-03 08:37] VITALS: BP 133/62; TEMP 96.8
[2021-06-03] MEDS: ASPIRIN EC 81 MG TAB PO SCH ×2 (09:22→09:23)
--- NOTE | 2021-06-03 11:15 | EKG ---
Test Date: 2021-06-02 Test Time: 09:12:48 Spot Welder Body Assembly: FLORINA MEASUREMENT RESULTS: Intervals: Rate: 66 TN: 166 QRSD: 88 QT: 412 QTc: 431 [place]: P: 46 TN: 166 QRS: 28 T: 61 INTERPRETIVE STATEMENTS: Normal sinus rhythm Normal ECG Compared to ECG 08/11/2012 11:00:20 No significant changes Electronically Signed On 06-03-21 11:13:16 CDT by Lv Whitaker
--- NOTE | 2021-06-03 11:26 | P.DS ---
Admission Date: 06/02/21 Discharge Date: 06/03/21 Primary Care Provider: Dr. Chappell Disposition: ROUTINE DISCHARGE Discharge Condition: GOOD Reason for Admission: Atypical Chest Pain Consultations: Cardiology Dr. Whitaker Procedures: CT dissection protocol (06/02): FINDINGS: Thorax: Chest Wall: No abnormal mass Lungs: No acute abnormality. Pleura: No effusions or pneumothorax. Connie/Mediastinum: No lymphadenopathy. Calcified mediastinal and hilar lymph nodes. Small hiatal hernia. Thoracic Aorta: Mild aneurysmal dilatation of the ascending thoracic aorta measuring 4.1 cm. Aorta/Pulmonary Arteries: Limited evaluation of the pulmonary arteries. Heart: Normal size. Abdomen/Pelvis: Liver: No acute abnormality or suspicious lesions. Biliary: No biliary ductal dilatation. Stomach: No significant focal abnormality. Duodenum: No significant focal abnormality. Pancreas: No significant abnormality. Spleen: No significant abnormality. Adrenal: No suspicious lesions. Kidney/ureter: No hydronephrosis. 3 mm left renal calculus. 3 mm right renal calculus in the lower pole. Too small to characterize and/or benign appearing renal lesions are noted. Retroperitoneum: No retroperitoneal adenopathy. Vascular: No aneurysm. Bowel: No significant focal abnormality. Peritoneum: No ascites or free air. Bladder: Grossly unremarkable. Reproductive: Mild prostatomegaly. Bones: Mild remote appearing compression deformities at T2 and T3, favored remote. 14 millimeters indeterminate mildly sclerotic lesion in T5 was present on the MRI from 01/09/2012 and is benign. There are a couple of tiny sclerotic foci in the pelvis that are likely bone islands. Other: n/a IMPRESSION: No acute findings within the chest, abdomen, or pelvis. Specifically, no evidence of aortic dissection/acute aortic syndrome. Ascending thoracic aortic aneurysm measuring 4.1 cm. Problem list NSTEMI, suspect demand ischemia Hypertension Brief History of Present Illness: 81-year-old white male with a history of hypertension. 5 days ago he began to get gas-like pain in his left abdomen which would radiate up into his left chest and sometimes his left shoulder. Initially the chest, rib, shoulder pain lasted just a few minutes and went away. These pains would occur a couple times a day. However last night at 11:30 PM he had an episode was quite painful, rated at 8/10. The pain lasted about 30 minutes. When it finally subsided he went to bed. He awoke at 630 with no chest or side pain at all but about 730 this morning the pain returned. He was concerned about possible heart problems and came into the emergency room at that time. Hospital Course: Patient's EKG was without acute ischemic changes. His initial troponin was noted to be mildly elevated at 0.13. He was started on a heparin drip, admitted to the hospital with cardiology consult. His troponins were trended and decreased down to 0.06. He did not have any recurrence of his chest/flank/left lower quadrant pain throughout his hospitalization. There were no events on telemetry. He underwent echocardiogram which the bumper machine operator reported as within normal limits. Cardiology recommended no further cardiac work-up while inpatient. Patient was deemed stable to be discharged home, to complete work-up with cardiac stress test as an outpatient. Patient discharged home with aspirin 81 mg daily, atorvastatin, and metoprolol. He is to follow-up with his PCP in 3 to 5 days. He is to follow-up with Dr. Whitaker. Cardiology office will call him this coming Saturday to schedule stress test. Vital Signs/Physical Exam: Temp Pulse Resp BP Pulse Ox 96.8 F 58 16 133/62 97 06/03/21 08:00 06/03/21 08:00 06/03/21 08:00 06/03/21 08:00 06/03/21 08:00 General: Alert, In no apparent distress, Oriented x3 HEENT: Sclerae nonicteric Neck: Supple Respiratory: Clear to auscultation bilaterally, Normal air movement Cardiovascular: No edema, Regular rate/rhythm, Normal S1 S2, No murmurs Gastrointestinal: Soft and benign, Non-distended, No tenderness Musculoskeletal: No erythema, No tenderness Integumentary: No rashes Neurological: Normal speech, Normal affect Laboratory Data at Discharge: WBC 7.20 K/uL (4.3-10.9) 06/03/21 03:26 Hgb 13.2 g/dL (13.6-17.9) L 06/03/21 03:26 Hct 39.6 % (39.6-49.0) 06/03/21 03:26 Plt Count 206 K/uL (152-406) 06/03/21 03:26 PT 12.6 SECONDS (9.5-12.5) H 06/02/21 15:48 INR 1.09 06/02/21 15:48 APTT 51.6 SECONDS (24.3-36.9) H 06/03/21 01:21 Sodium 142 mmol/L (136-145) 06/03/21 03:26 Potassium 4.6 mmol/L (3.5-5.1) 06/03/21 03:26 BUN 19 mg/dL (7-18) H 06/03/21 03:26 Creatinine 1.22 mg/dL (0.55-1.3) 06/03/21 03:26 Glucose 102 mg/dL (74-106) 06/03/21 03:26 Magnesium 2.2 mg/dL (1.8-2.4) 06/03/21 03:26 Total Bilirubin 0.4 mg/dL (0.2-1.0) 06/03/21 03:26 AST 15 U/L (15-37) 06/03/21 03:26 ALT 15 U/L (12-78) 06/03/21 03:26 Alkaline Phosphatase 60 U/L (45-117) 06/03/21 03:26 Troponin I 0.06 ng/mL (0.0-0.045) H 06/03/21 03:26 Triglycerides 100 mg/dL (<150) 06/03/21 03:26 Cholesterol 146 mg/dL (<200) 06/03/21 03:26 HDL Cholesterol 42 mg/dL (40-60) 06/03/21 03:26 Cholesterol/HDL Ratio 3.48 06/03/21 03:26 Lipase 158 U/L (73-393) 06/02/21 09:02 Home Medications: Triamterene/Hydrochlorothiazid [Triamterene-Hctz 37.5-25 mg Tb] 1 tab PO DAILY 06/02/21 Aspirin [Aspirin EC 81 MG] 81 mg PO DAILY 30 Days #30 tablet. 06/03/21 Atorvastatin Calcium 20 mg PO BEDTIME 30 Days #30 tablet 06/03/21 Metoprolol Tartrate 0.5 tab PO BID 30 Days #30 tablet 06/03/21 New Medications: Aspirin [Aspirin EC 81 MG] 81 mg PO DAILY 30 Days #30 tablet. Atorvastatin Calcium 20 mg PO BEDTIME 30 Days #30 tablet Metoprolol Tartrate 0.5 tab PO BID 30 Days #30 tablet Physician Discharge Instructions: You were found to have a very mild elevation of your cardiac enzyme, troponin. Your EKG did not show any signs of heart damage / ischemia. Your heart rhythm was monitored overnight and regular. Your echocardiogram was normal. Cardiology, Dr. Whitaker, was consulted and recommended no further inpatient work-up. You are deemed stable to be discharged home with plans for an outpatient stress test. Cardiology office will call you on Saturday to have this scheduled. You are discharged home with prescriptions for aspirin 81 mg daily, metoprolol 12.5 mg twice a day, and atorvastatin 20 mg at bedtime. Diet: AHA Activity: Ad barak Followup: Lv Whitaker MD [ACTIVE - CAN ADMIT] - Jsoe Chappell MD [Primary Care Provider] - Time spent managing pt's care (in minutes): 40
[2021-06-03] MEDS ORDERED: INFLUENZA VACCINE (for 6+ mo) 0.5 ML DOSE IMVAC ONE (13:00)
--- NOTE | 2021-06-04 17:46 | CON ---
Date of Consultation: 06/02/2021 Reason For Consultation: Chest pain and elevated troponin. History Of Present Illness: Mr. Sarabia is a male, who was really very healthy except for hypertension. He came in with very atypical chest pain, left lateral wall, left lower quadrant abdom inal pain, some upper shoulder pain without exertion. No nausea, vomiting, diaphoresis, PND, orthopn ea, pedal edema, palpitation, or syncope. Denied any fever or chills or cough. EKG was normal. Tro ponin was elevated, and I was consulted. Past Medical History: Includes hypertension. Allergies: NONE. Review of Systems: Negative. Social History: Negative. Family History: Negative. Medications: At home include triamterene with hydrochlorothiazide. Physical Examination: General: Very pleasant, pain free when I saw him. Vital Signs: Stable, afebrile. HEENT: Negative. Neck: Supple without any bruit, lymphadenopathy, JVD, or thyromegaly. Chest: Clear to auscultation and percussion. Cardiac: Revealed a regular rhythm and rate. No murmurs, gallops, or rubs. Abdomen: Benign. Extremities: Revealed no clubbing, cyanosis, or edema. Diagnostic Data: Pretty normal except for the troponin being slightly elevated at 0.13 and second on e was 0.06. Impression And Plan: Very atypical chest pain. Troponin is clinically not significant in this setti ng. The patient actually literally has left lower quadrant pain and left lateral wall pain with some arm pain. Nevertheless, I think he deserves to be treated with metoprolol, aspirin, and statin in a ddition to his triamterene and hydrochlorothiazide. I will make arrangements for him to have an outp atient echocardiogram and MPI in the very near future. He can go home otherwise. NB/MODL Voice ID: [id number] Report ID: [id number]
--- NOTE | 2021-06-05 07:37 | ECHO ---
HEIGHT: 5 ft 6 in WEIGHT: 198 lb 0 oz DATE OF STUDY: 06/02/[address]: Allan Rivera ENP 2-DIMENSIONAL: YES M.MODE: YES DOPPLER: YES COLOR FLOW: YES TDS: NO PORTABLE: NO DEFINITY: NO BUBBLE STUDY: NO DIAGNOSIS: ATYPICAL CHEST PAIN CARDIAC HISTORY: CATHERIZATION: NO SURGERY: NO PROSTHETIC VALVE: NO PACEMAKER: NO MEASUREMENTS (cm) DIASTOLIC (NORMALS) SYSTOLIC (NORMALS) IVSd 1.1 (0.6-1.2) LA Diam 3.3 (1.9-4.0) LVEF 69% LVIDd 4.1 (3.5-5.7) LVIDs 2.5 (2.0-3.5) %FS 38% LVPWd 1.2 (0.6-1.2) Ao Diam 2.5 (2.0-3.7) 2 DIMENSIONAL ASSESSMENT: RIGHT ATRIUM: NORMAL LEFT ATRIUM: NORMAL RIGHT VENTRICLE: NORMAL LEFT VENTRICLE: NORMAL TRICUSPID VALVE: NORMAL MITRAL VALVE: NORMAL PULMONIC VALVE: NORMAL AORTIC VALVE: NORMAL PERICARDIAL EFFUSION: NONE AORTIC ROOT: NORMAL LEFT VENTRICULAR WALL MOTION: NORMAL DOPPLER/COLOR FLOW: NORMAL COMMENTS: NORMAL 2D ECHOCARDIOGRAM WITH DOPPLER. NO WALL MOTION ABNORMALITY. NO EFFUSION. TECHNOLOGIST: Estefany CORONADO
== END 2021-06-03 12:59 | disposition home or self-care (01) | DRG 313 ==
LOC: ER 08:16 → ERHOLD 12:11 → 2ND 16:09
PROVIDERS: ADMIT Hospitalist; ATTEND Hospitalist
DX: R07.89 Other chest pain (principal); I10 Essential (primary) hypertension; R77.8 Other specified abnormalities of plasma proteins; Z20.822 Contact with and (suspected) exposure to COVID-19
CPT/HCPCS: 36415; 71275; 74175; 80048; 80053; 80061; 80076; 81003; 81015; 82565; 83690; 83735; 84439; 84443; 84484; 85025; 85610; 85730; 87086; 87088; 90471; 93005; 93306; 96374; 99285; J1644; Q2035; Q9967; U0003

== ENCOUNTER 2021-07-01 23:01 | Emergency (ER) | payer OTHER ==
[2021-07-01 23:39] LABS: Absolute Lymphocytes (CBC) 2.1 K/uL (0.7-4.9); Basophils % 1.4 % (0-1.3); Hematocrit 38.3 % (39.6-49.0); Lymphocytes % 29.7 % (15.3-44.8); MPV 8.2 fL (7.6-11.3); RBC Red Blood Cell Count 4.55 M/uL (4.33-5.43)
[2021-07-02 00:01] LABS: ALT/SGPT 17 U/L (12-78); AST/SGOT 13 U/L (15-37); Albumin 3.4 g/dL (3.4-5.0); Alkaline Phosphatase 65 U/L (45-117); BUN Blood Urea Nitrogen 18 mg/dL (7-18); Bicarbonate 29 mmol/L (21-32); Bilirubin Direct < 0.1 mg/dL (0-0.2); Bilirubin Total 0.2 mg/dL (0.2-1.0); Glucose Level 97 mg/dL (74-106); Protein, Total 7.9 g/dL (6.4-8.2); Sodium Level 142 mmol/L (136-145)
--- NOTE | 2021-07-02 00:14 | EDPHYS ---
Physician Documentation [facility] Name: Jc Sarabia Age: 81 yrs Sex: Male : 1940 Arrival Date: 07/01/2021 Time: 23:04 Bed 6 Private MD: ED Physician Rosalva Nur HPI: 07/01 23:17 This 81 yrs old Male presents to ER via Unassigned with complaints of sp3 Headache, Headache > 24hrs Old. 23:17 81-year-old male with a history of hypertension presents with acute on chronic onset of sp3 headache x2 weeks. Patient saw his primary care physician which prescribed butalbital/acetaminophen to be taken as needed as needed. Patient states that he has had periodic headaches "for his whole life" but this headache is been constant for 2 weeks. He obtained an outpatient MRI by his PCP on 3 days ago and received the results today which were "normal". He is also had outpatient labs which were normal. He has not yet seen a neurologist. He denies any seizure activity, changes in vision, weakness, and sensory changes, neck pain, back pain, URI symptoms, chest pain, shortness of breath, abdominal pain, nausea, vomiting, diarrhea, rash, known travel, trauma, known sick contacts, any other ROS at this time. Remainder of ROS is negative. Patient also received 2 negative COVID-19 tests over the last 2 weeks.. Historical: - Allergies: 23:22 No Known Allergies; lp1 - Home Meds: 23:22 todljxoedz-jzddstziufter-fxtl 50-325-40 mg Oral tab [Active]; lp1 triamterene-hydrochlorothiazid 37.5-25 mg Oral tab 1 tab once daily [Active]; - PMHx: 23:22 Hypertension; lp1 - PSHx: 23:22 Sinus SX; Appendectomy; hernia repair; Leg sx; lp1 - Immunization history:: Adult Immunizations up to date, Client reports receiving the 2nd dose of the Covid vaccine. - Social history:: Smoking status: Patient denies any tobacco usage or history of. ROS: 23:18 Constitutional: Negative for fever, chills, and weight loss, Eyes: Negative for injury, sp3 pain, redness, and discharge, ENT: Negative for injury, pain, and discharge, Neck: Negative for injury, pain, and swelling, Cardiovascular: Negative for chest pain, palpitations, and edema, Respiratory: Negative for shortness of breath, cough, wheezing, and pleuritic chest pain, Abdomen/GI: Negative for abdominal pain, nausea, vomiting, diarrhea, and constipation, Back: Negative for injury and pain, MS/Extremity: Negative for injury and deformity, Skin: Negative for injury, rash, and discoloration, Psych: Negative for depression, anxiety, suicide ideation, homicidal ideation, and hallucinations, Allergy/Immunology: Negative for hives, rash, and allergies, Endocrine: Negative for neck swelling, polydipsia, polyuria, polyphagia, and marked weight changes. 23:20 All other systems are negative. sp3 Exam: 23:19 Constitutional: This is a well developed, well nourished patient who is awake, alert, sp3 and in no acute distress. Head/Face: Normocephalic, atraumatic. Eyes: Pupils equal round and reactive to light, extra-ocular motions intact. Lids and lashes normal. Conjunctiva and sclera are non-icteric and not injected. Cornea within normal limits. Periorbital areas with no swelling, redness, or edema. ENT: Nares patent. No nasal discharge, no septal abnormalities noted. External auditory canals are clear. Oropharynx with no redness, swelling, or masses, exudates, or evidence of obstruction, uvula midline. Mucous membranes moist. Neck: Trachea midline, no thyromegaly or masses palpated, and no cervical lymphadenopathy. Supple, full range of motion without nuchal rigidity, or vertebral point tenderness. No Meningismus. Chest/axilla: Normal chest wall appearance and motion. Nontender with no deformity. No lesions are appreciated. Cardiovascular: Regular rate and rhythm with a normal S1 and S2. No gallops, murmurs, or rubs. Normal PMI, no JVD. No pulse deficits. Respiratory: Lungs have equal breath sounds bilaterally, clear to auscultation and percussion. No rales, rhonchi or wheezes noted. No increased work of breathing, no retractions or nasal flaring. Abdomen/GI: Soft, non-tender, with normal bowel sounds. No distension or tympany. No guarding or rebound. No evidence of tenderness throughout. Back: No spinal tenderness. No costovertebral tenderness. Full range of motion. Skin: Warm, dry with normal turgor. Normal color with no rashes, no lesions, and no evidence of cellulitis. MS/ Extremity: Pulses equal, no cyanosis. Neurovascular intact. Full, normal range of motion. Neuro: Awake and alert, GCS 15, oriented to person, place, time, and situation. Cranial nerves II-XII grossly intact. Motor strength 5/5 in all extremities. Sensory grossly intact. Cerebellar exam normal. Normal gait. Psych: Awake, alert, with orientation to person, place and time. Behavior, mood, and affect are within normal limits. Vital Signs: 23:20 BP 193 / 77; Pulse 65; Resp 16; Temp 98.1(O); Pulse Ox 100% on R/A; Weight 83.91 kg lp1 (R); Height 5 ft. 10 in. (177.80 cm); Pain 06/11; 23:45 BP 171 / 76; Pulse 63; Resp 16; Pulse Ox 99% on R/A; lp1 07/02 00:15 BP 153 / 81; Pulse 63; Resp 16; Pulse Ox 98% on R/A; lp1 07/01 23:20 Body Mass Index 26.54 (83.91 kg, 177.80 cm) lp1 MDM: 07/01 23:06 Patient medically screened. sp3 23:20 Data reviewed: vital signs, nurses notes. ED course: 81-year-old male with headache x2 sp3 weeks. No imaging currently indicated as MRI on 3 days ago was normal. Vital signs are also normal. Will obtain laboratory values, Tylenol level, and administer Dilaudid and Zofran IV for symptomatic treatment. Patient will need outpatient follow-up with neurology. Will discharge home once headache is resolved or improved. At this time I am not highly suspicious for intracranial hemorrhage, infection, meningitis, sepsis, shock, CVA, embolic event, any other critical findings at this time.. 07/02 00:12 ED course: Patient feels dramatically better and states that his pain is now completely sp3 resolved. Laboratory values reviewed and shared with patient. Will discharge patient home with neurology follow-up with Dr. Oh patient knows to return for any further worsening of symptoms.. 07/01 23:15 Order name: Basic Metabolic Panel sp3 07/01 23:15 Order name: CBC with Diff; Complete Time: 00:07 sp3 07/01 23:15 Order name: Hepatic Function; Complete Time: 00:07 sp3 07/01 23:15 Order name: Basic Metabolic Panel; Complete Time: 00:07 EDMS 07/01 23:16 Order name: Acetaminophen; Complete Time: 00:07 sp3 07/01 23:15 Order name: IV Saline Lock; Complete Time: 23:33 sp3 07/01 23:15 Order name: Labs collected and sent; Complete Time: 23:33 sp3 07/01 23:47 Order name: SARS-COV-2 RT PCR EDMS Administered Medications: 07/01 23:40 Drug: Dilaudid (HYDROmorphone) 1 mg Route: IVP; Site: right antecubital; lp1 07/02 00:20 Follow up: Response: Marked relief of symptoms lp1 07/01 23:40 Drug: Zofran (Ondansetron) 4 mg Route: IVP; Site: right antecubital; lp1 07/02 00:20 Follow up: Response: No adverse reaction lp1 Disposition Summary: 07/02/21 00:13 Discharge Ordered Location: Home sp3 Condition: Stable sp3 Diagnosis - Headache sp3 Followup: sp3 - With: Sandip Oh MD - When: Upon discharge from the Emergency Department - Reason: Recheck today's complaints Discharge Instructions: - Discharge Summary Sheet sp3 - General Headache Without Cause sp3 Forms: - Medication Reconciliation Form sp3 - Thank You Letter sp3 - Antibiotic Education sp3 - Prescription Opioid Use sp3 Signatures: Dispatcher [employer] EDMS Maribell Al RN RN lp1 Rosalva Nur MD MD sp3 Corrections: (The following items were deleted from the chart) 07/01 23:47 23:33 CORONAVIRUS+[email or web address] ordered. EDMS EDMS
--- NOTE | 2021-07-02 00:14 | ER ---
Nurse's Notes [facility] Name: Jc Sarabia Age: 81 yrs Sex: Male : 1940 Arrival Date: 07/01/2021 Time: 23:04 Bed 6 Private MD: Diagnosis: Headache Presentation: 07/01 23:20 Chief complaint: Patient states: headache persisting x 2 weeks, pain to right temporal lp1 area of head; Denies vision or memory changes; States MRI done 2 days ago, negative results. Coronavirus screen: At this time, the client does not indicate any symptoms associated with coronavirus-19. The client reports previous COVID testing was negative. 3 days ago, per patient. Ebola Screen: No symptoms or risks identified at this time. Initial Sepsis Screen: Does the patient meet any 2 criteria? No. Patient's initial sepsis screen is negative. Does the patient have a suspected source of infection? No. Patient's initial sepsis screen is negative. Risk Assessment: Do you want to hurt yourself or someone else? Patient reports no desire to harm self or others. Onset of symptoms was July 01, 2021. 23:20 Method Of Arrival: Ambulatory lp1 23:20 Acuity: QUYEN 3 lp1 Historical: - Allergies: 23:22 No Known Allergies; lp1 - Home Meds: 23:22 lhneufwckc-xovubrwdbzihh-hdil 50-325-40 mg Oral tab [Active]; lp1 triamterene-hydrochlorothiazid 37.5-25 mg Oral tab 1 tab once daily [Active]; - PMHx: 23:22 Hypertension; lp1 - PSHx: 23:22 Sinus SX; Appendectomy; hernia repair; Leg sx; lp1 - Immunization history:: Adult Immunizations up to date, Client reports receiving the 2nd dose of the Covid vaccine. - Social history:: Smoking status: Patient denies any tobacco usage or history of. Screenin:23 Abuse screen: Denies threats or abuse. Denies injuries from another. Nutritional lp1 screening: No deficits noted. Tuberculosis screening: No symptoms or risk factors identified. Fall Risk None identified. Assessment: 23:24 General: Appears in no apparent distress. Behavior is appropriate for age. Pain: lp1 Complains of pain in right temporal area and right yazdanism Pain does not radiate. Pain currently is 10 out of 10 on a pain scale. Quality of pain is described as sharp, Pain began gradually, Is continuous, Current management is ineffective. Neuro: Level of Consciousness is awake, alert, obeys commands, Oriented to person, place, time, situation, Moves all extremities. Full function Gait is steady, Pupils are PERRLA, Intact Reports headache in right Denies weakness blurred vision dizziness, paresthesias photophobia. Cardiovascular: Patient's skin is warm and dry. Respiratory: Respiratory effort is even, unlabored. GI: No signs and/or symptoms were reported involving the gastrointestinal system. : No signs and/or symptoms were reported regarding the genitourinary system. EENT: No signs and/or symptoms were reported regarding the EENT system. Derm: Skin is pink, warm \\T\\ dry. Musculoskeletal: No deficits noted. 07/02 00:20 Reassessment: Patient appears in no apparent distress at this time. Patient reports lp1 some "wooziness" but states headache almost completely resolved Patient states feeling better. Patient states symptoms have improved. Vital Signs: 07/01 23:20 BP 193 / 77; Pulse 65; Resp 16; Temp 98.1(O); Pulse Ox 100% on R/A; Weight 83.91 kg lp1 (R); Height 5 ft. 10 in. (177.80 cm); Pain 10; 23:45 BP 171 / 76; Pulse 63; Resp 16; Pulse Ox 99% on R/A; lp1 07/02 00:15 BP 153 / 81; Pulse 63; Resp 16; Pulse Ox 98% on R/A; lp1 07/01 23:20 Body Mass Index 26.54 (83.91 kg, 177.80 cm) lp1 ED Course: 07/01 23:04 Patient arrived in ED. bp1 23:06 Maribell Al, ZACH is Primary Nurse. lp1 23:06 Rosalva Nur MD is Attending Physician. sp3 23:22 Triage completed. lp1 23:22 Arm band placed on. lp1 23:25 Patient has correct armband on for positive identification. lp1 23:33 Inserted saline lock: 20 gauge in right forearm, using aseptic technique. Blood ds4 collected. 07/02 00:13 Sandip Oh MD is Referral Physician. sp3 00:21 No provider procedures requiring assistance completed. lp1 00:22 IV discontinued, No redness/swelling at site. Pressure dressing applied. lp1 Administered Medications: 07/01 23:40 Drug: Dilaudid (HYDROmorphone) 1 mg Route: IVP; Site: right antecubital; lp1 07/02 00:20 Follow up: Response: Marked relief of symptoms lp1 07/01 23:40 Drug: Zofran (Ondansetron) 4 mg Route: IVP; Site: right antecubital; lp1 07/02 00:20 Follow up: Response: No adverse reaction lp1 Outcome: 00:13 Discharge ordered by . sp3 00:31 Discharged to home via wheelchair, with significant other. lp1 00:31 Condition: good 00:31 Discharge instructions given to patient, significant other, Instructed on discharge instructions, follow up and referral plans. Demonstrated understanding of instructions, follow-up care. 00:32 Patient left the ED. lp1 Signatures: Maribell Al RN RN lp1 Marco Antonio Chang ds4 Rachael Cowan Setul, MD MD sp3
[2021-07-02] MEDS ORDERED: ONDANSETRON 4 MG/2 ML VIAL ONE (00:27)
[2021-07-02] MEDS ORDERED: HYDROMORPHONE HCL 1 MG/ML INJ ONE (00:27)
[2021-07-02 00:41] VITALS: TEMP 98.1
[2021-07-02 00:43] VITALS: BP 153/81; O2SAT 98
== END 2021-07-02 00:32 | disposition home or self-care (01) ==
LOC: ER 23:01
DX: R51.9 Headache, unspecified (principal); I10 Essential (primary) hypertension; Z20.822 Contact with and (suspected) exposure to COVID-19
CPT/HCPCS: 85025; 80048; 36415; 80329; 80076; 96375; 96374; 99283; U0003

== ENCOUNTER 2022-09-21 13:04 | Emergency (ER) | payer OTHER ==
--- OUTSIDE RECORDS SUMMARY | 2022-09-21 13:07 | XMS REPORT | Continuity of Care Document ---
:1940 Author Organization [facility] t Address [address] [place] [address] [address] [place] [address] Care Team Providers Name Role Phone Damian Carlson DO Attending Clinician Pob, [facility] Main Attending Clinician Unavailable Kely Valentine MD Attending Clinician KELY VALENTINE Attending Clinician Unavailable 2, [facility] Attending Clinician Unavailable Payers Payer Name Policy Type Policy Number Effective Date Expiration Date S samson MEDICARE MB [id number] [facility] [place] [address] [id number] Common Sp edward [facility] MEDICARE MB [id number] [facility] [place] [address] [id number] Common Sp [facility] - [facility] MEDICARE MB [id number] [facility] [place] [address] [id number] Common Sp edward 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 Sp edward origin n, - [facility]I un[facility]ie [facility] dysfunctio Medica l n type Center Allergies, Adverse Reactions, Alerts Allergy Allergy Status Severity Reaction(s) Onset Inactive Treating Comm ents Source Name Type Date Date Clinician NO KNOWN Drug Active Univers ALLERGIE Class ity of S [place] [facility] [place] Social History Social Habit Start Date Stop Date Quantity Comments Source Exposure to Not sure [facility] SARS-CoV-2 (event) Medica l [place] Sex Assigned At Common Sp ed[facility] - [facility] History of Tobacco [facility] - [facility] Tobacco use and 2020-06-23 2020-06-23 Never used Universit y [facility] exposure 00:00:00 00:00:00 Medical Branch Smoking Status Start Date Stop Date Source Former Smoker 2021-05-29 00:00:00 2021-05-29 00:00:00 Common S pirit - [facility] Medications Ordered Filled Start Stop Current Ordering Indication Dosage Frequency Signature Comments Components Source Medication Medication Date Date Medication? Clinician (SIG) Name Name Alfuzosin Alfuzosin 2020- No 1{table QD Alfuzosin HCl ER 10 HCl ER 10 8-20 11-17 t_immed HCl ER 10 MG MG 00:00: 00:00 iately_ MG 00 :00 after_t he_same _meal} tamsulosin 2019-09- No Univer s 0.4 mg 24 0-22 10-22 ity of hr capsule 14:14: 00:00 [place] 48 :00 [facility] tamsulosin 2019-09- No Univer s 0.4 mg 24 0-22 10-22 ity of hr capsule 14:14: 00:00 [place] 48 :00 Medical Branch tamsulosin 2019-09- No Univer s 0.4 mg 24 0-22 10-22 ity of hr capsule 14:14: 00:00 [place] 48 :00 [facility] tamsulosin 2019-09- No [id number] .4mg Take 1 Univers 0.4 mg 24 0-09-22 capsule by ity of hr capsule 00:00: 05:59 mouth [place] 00 :00 daily for Medical 90 days. Branch tamsulosin 2019-09- No [id number] .4mg Take 1 Univers 0.4 mg 24 0-22 01-21 capsule by ity of hr capsule 00:00: 05:59 mouth [place] 00 :00 daily for Medical 90 days. [place] tamsulosin 2019-09- No [id number] .4mg Take 1 Univers 0.4 mg 24 0-22 01-21 capsule by ity of hr capsule 00:00: 05:59 mouth [place] 00 :00 daily for Medical 90 days. [place] tamsulosin 2019-09- No [id number] .4mg Take 1 Univers 0.4 mg 24 0-22 01-21 capsule by ity of hr capsule 00:00: 05:59 mouth [place] 00 :00 daily for Medical 90 days. [place] tamsulosin 2019-09- No [id number] .4mg Take 1 Univers 0.4 mg 24 0-22 01-21 capsule by ity of hr capsule 00:00: 05:59 mouth [place] 00 :00 daily for Medical 90 days. [place] tamsulosin 2019-09- No [id number] .4mg Take 1 Univers 0.4 mg 24 0-22 -21 capsule by ity of hr capsule 00:00: 05:59 mouth [place] 00 :00 daily for Medical 90 days. [place] tamsulosin 2019-09- No [id number] .4mg Take 1 Univers 0.4 mg 24 0-22 01-21 capsule by ity of hr capsule 00:00: 05:59 mouth [place] 00 :00 daily for Medical 90 days. [place] tamsulosin 2019-09- No [id number] .4mg Take 1 Univers 0.4 mg 24 0-22 01-21 capsule by ity of hr capsule 00:00: 05:59 mouth [place] 00 :00 daily for Medical 90 days. [place] ALPRAZolam 2019-0 Yes TAKE 1 2 Uni vers 0.25 mg 8-03 TO 1 (ONE ity of tablet 00:00: HALF TO [place] 00 ONE) Medical TABLET BY Branch MOUTH ONCE DAILY NEEDED ALPRAZolam 2019-0 Yes TAKE 1 2 Uni vers 0.25 mg 8-03 TO 1 (ONE ity of tablet 00:00: HALF TO [place] 00 ONE) Medical TABLET BY Branch MOUTH ONCE DAILY NEEDED ALPRAZolam 2019-0 Yes TAKE 1 2 Uni vers 0.25 mg 8-03 TO 1 (ONE ity of tablet 00:00: HALF TO [place] 00 ONE) Medical TABLET BY Branch MOUTH ONCE DAILY NEEDED ALPRAZolam 2020-0 Yes TAKE 1 2 Uni vers 0.25 mg 8-03 TO 1 (ONE ity of tablet 00:00: HALF TO [place] ONE) Medical TABLET BY Branch MOUTH ONCE DAILY NEEDED ALPRAZolam 2020-0 Yes TAKE 1 2 Uni vers 0.25 mg 8-03 TO 1 (ONE ity of tablet 00:00: HALF TO [place] ONE) Medical TABLET BY Branch MOUTH ONCE DAILY NEEDED ALPRAZolam 2020-0 Yes TAKE 1 2 Uni vers 0.25 mg 8-03 TO 1 (ONE ity of tablet 00:00: HALF TO [place] ONE) Medical TABLET BY Branch MOUTH ONCE DAILY NEEDED ALPRAZolam 2020-0 Yes TAKE 1 2 Uni vers 0.25 mg 8-03 TO 1 (ONE ity of tablet 00:00: HALF TO [place] ONE) Medical TABLET BY Branch MOUTH ONCE DAILY NEEDED ALPRAZolam 2020-0 Yes TAKE 1 2 Uni vers 0.25 mg 8-03 TO 1 (ONE ity of tablet 00:00: HALF TO [place] ONE) Medical TABLET BY Branch MOUTH ONCE DAILY NEEDED ALPRAZolam 2020-0 Yes TAKE 1 2 Uni vers 0.25 mg 8-03 TO 1 (ONE ity of tablet 00:00: HALF TO [place] ONE) Medical TABLET BY Branch MOUTH ONCE DAILY NEEDED ALPRAZolam 2020-0 Yes TAKE 1 2 Uni vers 0.25 mg 8-03 TO 1 (ONE ity of tablet 00:00: HALF TO [place] ONE) Medical TABLET BY Branch MOUTH ONCE DAILY NEEDED ALPRAZolam 2020-0 Yes TAKE 1 2 Uni vers 0.25 mg 8-03 TO 1 (ONE ity of tablet 00:00: HALF TO [place] ONE) Medical TABLET BY Branch MOUTH ONCE DAILY NEEDED Triamterene Triamterene Yes Nataly 1 tablet Common -HCTZ -HCTZ [facility] morning - [facility] Levitra 20 Levitra 20 No QD Levitra 20 MG MG MG Vitamin C Vitamin C No Vitamin C 500 MG 500 MG 500 MG Triamterene Triamterene No 1{table QD Triamteren -HCTZ -HCTZ t_in_ e-HCTZ 37.5-25 MG 37.5-25 MG e_morni 37.5-25 MG ng} Vitamin D Vitamin D No 1{table QD Vitamin D 50 MCG 50 MCG t} 50 MCG (1999) (1999) (1999) Vitamin D Vitamin D No 1{table QD Vitamin D 50 MCG 50 MCG t} 50 MCG (1999) (1999) (1999) Triamterene Triamterene No 1{table QD Triamteren -HCTZ -HCTZ t_in_th e-HCTZ 37.5-25 MG 37.5-25 MG e_morni 37.5-25 MG ng} Levitra 20 Levitra 20 No QD Levitra 20 MG MG MG Vitamin C Vitamin C No Vitamin C 500 MG 500 MG 500 MG Vitamin D Vitamin D No 1{table QD Vitamin D 50 MCG 50 MCG t} 50 MCG (1999) (1999) (1999) Vitamin C Vitamin C No Vitamin C 500 MG 500 MG 500 MG Levitra 20 Levitra 20 No QD Levitra 20 MG MG MG Alfuzosin Alfuzosin No 1{table QD Alfuzosin HCl ER 10 HCl ER 10 t_immed HCl ER 10 MG MG iately_ MG after_t he_same _meal} Triamterene Triamterene No 1{table QD Triamteren -HCTZ -HCTZ t_in_ e-HCTZ 37.5-25 MG 37.5-25 MG e_morni 37.5-25 MG ng} Vital Signs Vital Name Observation Time Observation Value Comments Source height 2021-05-29 08:35:00 69 [in_i] [facility] weight 2021-05-29 08:35:00 186.9 [lb_av] [facility] temperature 2021-05-29 08:35:00 98.1 [degF] [facility] bmi 2021-05-29 08:35:00 27.6 kg/m2 [facility] oximetry 2021-05-29 08:35:00 92 % [facility] blood pressure 2021-05-29 08:35:00 152 mm[Hg] Common [facility] systolic [facility] blood pressure 2021-05-29 08:35:00 71 mm[Hg] [facility] - diastolic [facility] height 2021-04-21 14:40:00 69 [in_i] Common S pirit - [facility] weight 2021-04-21 14:40:00 186.8 [lb_av] Common [facility] temperature 2021-04-21 14:40:00 95 [degF] Common S pirit - [facility] bmi 2021-04-21 14:40:00 27.58 kg/m2 Common S pirit - [facility] oximetry 2021-04-21 14:40:00 95 % Common S pirit - [facility] blood pressure 2021-04-21 14:40:00 131 mm[Hg] [facility] - systolic [facility] blood pressure 2021-04-21 14:40:00 72 mm[Hg] [facility] - diastolic [facility] height 2020-11-04 11:00:00 69 [in_i] Common S pirit - [facility] weight 2020-11-04 11:00:00 186.8 [lb_av] [facility] temperature 2020-11-04 11:00:00 97.9 [degF] Common S pirit - [facility] bmi 2020-11-04 11:00:00 27.58 kg/m2 Common S pirit [facility] oximetry 2020-11-04 11:00:00 99 % Common S pirit - [facility] blood pressure 2020-11-04 11:00:00 164 mm[Hg] [facility] - systolic [facility] blood pressure 2020-11-04 11:00:00 84 mm[Hg] [facility] - diastolic [facility] Systolic blood 2020-06-23 13:11:00 111 mm[Hg] Univer sity of pressure [facility] Diastolic blood 2020-06-23 13:11:00 64 mm[Hg] Unive rsity of pressure [facility] Heart rate 2020-06-23 13:11:00 75 /min Universi ty [facility] Body temperature 2020-06-23 13:11:00 36.28 [facility] Body weight 2020-06-23 13:11:00 84.823 kg Universi ty of [facility] Oxygen saturation in 2020-06-23 13:11:00 96 /min [facility] blood by [facility] Pulse oximetry Branch Procedures Procedure Date / Time Performed Performing Clinician Sourc e PVR 2021-05-29 00:00:00 Common Spiri t [facility] BASIC METABOLIC PANEL 2020-06-23 14:13:00 Kely Valentnie [facility] (NA, K, CL, CO2, Medical Branch GLUCOSE, BUN, CREATININE, CA) POCT URINALYSIS AUTO 2020-06-23 13:51:00 Kely Valentine [facility] Encounters Start End Encounter Admission Attending Care Care Encounter Source Date/Time Date/Time Type Type Clinicians Facility Department ID 2021-09-27 Outpatient STLMLC STLMLC [id number] Common 11:08:02 [id number] Spirit [facility] 2021-05-29 2021-05-29 OFFICE STLMLC STLMLC [id number] Co mmon 00:00:00 00:00:00 VISIT EST Spir it PT LEVEL [address] [place] [address] 2021-04-21 2021-04-21 OFFICE STLMLC STLMLC [id number] Co mmon 00:00:00 00:00:00 VISIT EST Spir it PT LEVEL [address] [place] [address] 2020-11-04 2020-11-04 OFFICE STLMLC STLMLC [id number] Co mmon 00:00:00 00:00:00 VISIT EST Spir it PT LEVEL 3 [facility] 2020-09-25 2020-09-25 Patient Aldo, [facility] [id number] Univers 00:00:00 00:00:00 Outreach Damian PRIMARY [id number] i ty of [facility] [id number] Frances ALCAZAR [phone] Me dical 388 Branch 2020-07-26 2020-07-26 Dieing Out Machine Operator Kimmie German Lab Main [facility] [id number] Univers 08:45:29 09:00:29 Visit Kely Valentine [place] [id number] ity [id number] [phone] [address] 2020-07-26 2020-07-26 Outpatient R KEVIN [facility] [id number] Univers 08:45:00 08:45:00 KELY ity [facility] 2020-07-25 2020-07-25 [facility] [id number] Univers 10:00:00 10:00:00 KELY ity [facility] 2020-07-07 2020-07-07 [facility] [id number] Univers 09:00:00 09:00:00 KELY ity [facility] 2020-07-07 2020-07-07 Dieing Out Machine Operator 2, Adc Lab [facility] [id number] Univers 08:28:56 08:43:56 Visit Kely Valentine [id number] it[id number] [phone] [address] 2020-07-07 2020-07-07 Telephone [facility] [id number] Univers 00:00:00 00:00:00 Kely [place] [id number] [id number] [phone] [address] 2020-07-06 2020-07-06 [facility] [id number] Univers 00:00:00 00:00:00 Kely [place] [id number] i [id number] [phone] [address] 2020-06-30 2020-06-30 [facility] [id number] Univers 08:00:00 08:00:00 KELY ity [facility] 2020-06-27 2020-06-27 Telephone Kevin [facility] [id number] Univers 00:00:00 00:00:00 Kely Whitman [id number] [id number] [phone] Dc dical nal [address] [facility] 2020-06-23 2020-06-23 Office Kevin [facility] [id number] [facility] 08:01:19 09:15:53 Visit Kely Whitman [id number] [id number] [phone] Dc dical nal [address] [facility] 2020-06-23 2020-06-23 Dieing Out Machine Operator 2, Adc Lab [facility] [id number] Univers 08:47:49 09:02:49 Visit Kely Valentine [id number] ity [id number] [phone] Dc nerissami nal [address] [facility] 2020-06-23 2020-06-23 Outpatient R KEVIN [facility] [id number] [facility] 08:00:00 [facility]:00[facility] 2019-10-[facility] 2019-10-19 Outpatient Mark Russo [id number] Common 08:00:00 08:00:00 t Specialty/U Sp [place] Specialty rology - [facility]I /[facility]rology [facility] Results Test Description Test Time Test Comments Results Result Comments Source BASIC METABOLIC PANEL (NA, K, CL, CO2, GLUCOSE, BUN, 2020-06 17:34:00 CREATININE, CA) Test Item Value Reference Range Interpretation Comme nts NA (test code = 6829569504) 140 mmol/L 135-145 K (test code = 5533283133) 5.4 mmol/L 3.5-5 H CL (test code = 5984393249) 102 mmol/L 98-108 CO2 TOTAL (test code = 3525840592) 30 mmol/L 23-31 AGAP (test code = 8601305568) 2-16 BUN (test code = 6701942393) 26 mg/dL 7-23 H GLUCOSE (test code = 5032086703) 101 mg/dL 70-110 CREATININE (test code = 1.38 mg/dL 0.6-1.25 H 7762123149) CALCIUM (test code = 4015713949) 10.2 mg/dL 8.6-10.6 eGFR Calculation (Non- mL/min/1.73m2 [place]) (test code = 7895994192) eGFR Calculation ( mL/min/1.73m2 [place]) (test code = 2926794141) SARAH (test code = SARAH) Association of Glomerular Filtration Rate (GFR) and Staging of Kidney Disease* + +-------- + ------+| GFR (mL/min/1.73 m2) ?| With Kidney Damage ?| ?Without Kidney Damage+ +-- + +| ?>90 ?| ?Stage one ?| ? Normal ?+ +------- + -------+| ?60-89 ?| ?Stage two ?| ? Decreased GFR ? + +-------- + ------+| ?30-59 ?| ?Stage three ?| ? Stage three ? + +-------- + ------+| ?15-29 ?| ?Stage four ? | ? Stage four ?+ +------- + -------+| ?<15 (or dialysis) ? ?| ?Stage five ? | ? Stage five ?+ +------- + -------+ *Each stage assumes the associated GFR level has been in effect for at least three months. ?Stages 1 to 5, with or without kidney disease, indicate chronic kidney disease. Notes: Determination of stages one and two (with eGFR >59mL/min/1.73 m2) requires estimation of kidney damage for at least three months as defined by structural or functional abnormalities of the kidney, manifested by either:Pathological abnormalities or Markers of kidney damage (including abnormalities in the composition of the blood or urine or abnormalities in imaging tests). Lab Interpretation (test code = Abnormal 99569-0) [facility] URINALYSIS, [id number] 13:52:00 Test Item Value Reference Range Interpretation Comments POCT U SP GRAV (test code = 1.020 mg/dl 1.005-1.025 3255) POCT PH U (test code = 3254) 7.0 mg/dl 5-8 POCT U LEUK EST (test code = negative Negative - Negative 3263) POCT U NIT (test code = 3262) negative Negative - Negative POCT U PROT (test code = negative Negative - Negative 3259) POCT U GLU (test code = 3256) negative Negative - Negative POCT U KETONE (test code = negative Negative - Negative 3258) POCT U UROBILI (test code = 0.2 mg/dl 0.2-1 3260) POCT U BILI (test code = negative Negative - Negative 3261) POCT U BLD (test code = 3257) negative Negative - Negative POCT U COLOR (test code = yellow 3266) POCT U APPEAR (test code = clear 3267) [facility] URINALYSIS, [id number] 13:52:00 Test Item Value Reference Range Interpretation Comments POCT U SP GRAV (test code = 1.020 mg/dl 1.005-1.025 3255) POCT PH U (test code = 3254) 7.0 mg/dl 5-8 POCT U LEUK EST (test code = negative Negative - Negative 3263) POCT U NIT (test code = 3262) negative Negative - Negative POCT U PROT (test code = negative Negative - Negative 3259) POCT U GLU (test code = 3256) negative Negative - Negative POCT U KETONE (test code = negative Negative - Negative 3258) POCT U UROBILI (test code = 0.2 mg/dl 0.2-1 3260) POCT U BILI (test code = negative Negative - Negative 3261) POCT U BLD (test code = 3257) negative Negative - Negative POCT U COLOR (test code = yellow 3266) POCT U APPEAR (test code = clear 3267) [facility] [id number] 13:52:00 Test Item Value Reference Range Interpretation Comments POCT U SP GRAV (test code = 1.020 mg/dl 1.005-1.025 3255) POCT PH U (test code = 3254) 7.0 mg/dl 5-8 POCT U LEUK EST (test code = negative Negative - Negative 3263) POCT U NIT (test code = 3262) negative Negative - Negative POCT U PROT (test code = negative Negative - Negative 3259) POCT U GLU (test code = 3256) negative Negative - Negative POCT U KETONE (test code = negative Negative - Negative 3258) POCT U UROBILI (test code = 0.2 mg/dl 0.2-1 3260) POCT U BILI (test code = negative Negative - Negative 3261) POCT U BLD (test code = 3257) negative Negative - Negative POCT U COLOR (test code = yellow 3266) POCT U APPEAR (test code = clear 3267) [facility]"
[2022-09-21 13:59] LABS: Absolute Lymphocytes (CBC) 1.8 K/uL (0.7-4.9); Hematocrit 40.9 % (39.6-49.0); Lymphocytes % 20.7 % (15.3-44.8); MCV 84.7 fL (80-100); MPV 8.4 fL (7.6-11.3); RBC Red Blood Cell Count 4.83 M/uL (4.33-5.43)
[2022-09-21 14:08] LABS: Protime INR 1.13
[2022-09-21 14:18] LABS: Magnesium 2.4 mg/dL (1.6-2.4); Potassium 4.5 mmol/L (3.5-5.1)
--- NOTE | 2022-09-21 14:22 | RAD REPORT ---
EXAM DESCRIPTION: RAD - Chest Single View - 09/21/2022 2:02 pm CLINICAL HISTORY: syncope COMPARISON: Two view chest 01/30/2019 TECHNIQUE: AP portable chest image was obtained 09/21/2022 2:02 pm . FINDINGS: Chronic interstitial lung pattern is present similar to prior imaging. Right base granulom a again noted. Fullness of the mediastinum is noted. This is accentuated by slight rotation and portable imaging. Tr ue change from 2019 is doubtful. This is believed to be summation of the aorta and pulmonary arteries . Heart size is normal. No abnormal vascular engorgement. No measurable pleural effusion and no pneumothorax. No acute bony abnormality seen. No acute aortic findings suspected. IMPRESSION: No acute cardiopulmonary process. Chronic interstitial pattern matches the 2019 study.
--- NOTE | 2022-09-21 14:31 | RAD REPORT ---
EXAM DESCRIPTION: RAD - Pelvis - 09/21/2022 2:11 pm CLINICAL HISTORY: fall COMPARISON: Hip Left 2 View dated 09/21/2022 TECHNIQUE: AP imaging of the pelvis was obtained. FINDINGS: No fracture of the bony pelvis is identifiable. Sacral ala appear to be intact with mild f or age, symmetric SI joint degenerative pattern. No proximal femur acute finding. Left hip joint is s eparately detailed. No suspicious soft tissue finding. IMPRESSION: No fracture of the bony pelvis identifiable.
--- NOTE | 2022-09-21 14:33 | RAD REPORT ---
EXAM DESCRIPTION: RAD - Hip Left 2 View - 09/21/2022 2:11 pm CLINICAL HISTORY: PAINafter fall COMPARISON: Pelvis dated 09/21/2022 FINDINGS: AP and frogleg views of the left hip were obtained. There is no fracture or dislocation. No acute or destructive bony process seen. Minimal degenerative change seen along the superior acetabular rim. Mild for age, symmetric SI joint degenerative pattern is seen, partially imaged. No soft tissue abnormality. IMPRESSION: Mild for age hip joint degenerative change. No fracture or acute finding identifiable.
--- NOTE | 2022-09-21 14:53 | ER ---
Nurse's Notes [facility] Name: Jc Sarabia Age: 82 yrs Sex: Male : 1940 Arrival Date: 09/21/2022 Time: 13:05 Bed 8 Private MD: Jose Chappell B Diagnosis: Syncope Presentation: 09/21 13:20 Chief complaint: Patient states: I had an episode last night, I blacked out while I was iw going to the bathroom, I was having trouble going, he went back to bed but he passed out and woke up on the floor , got himself back in bed, now he does not feel too well and his tailbone is hurting. Coronavirus screen: At this time, the client does not indicate any symptoms associated with coronavirus-19. Ebola Screen: Patient negative for fever greater than or equal to 101.5 degrees Fahrenheit, and additional compatible Ebola Virus Disease symptoms Patient denies exposure to infectious person. Patient denies travel to an Ebola-affected area in the 21 days before illness onset. No symptoms or risks identified at this time. Initial Sepsis Screen: Does the patient meet any 2 criteria? No. Patient's initial sepsis screen is negative. Does the patient have a suspected source of infection? No. Patient's initial sepsis screen is negative. Risk Assessment: Do you want to hurt yourself or someone else? Patient reports no desire to harm self or others. Onset of symptoms was September 20, 2022. 13:20 Method Of Arrival: Ambulatory iw 13:20 Acuity: QUYEN 3 iw Historical: - Allergies: 13:23 No Known Allergies; iw - Home Meds: 13:23 tadalafil 20 mg oral tab 1 tab once daily [Active]; triamterene-hydrochlorothiazid iw 37.5-25 mg Oral tab 1 tab once daily [Active]; - PMHx: 13:23 Hypertension; iw - PSHx: 13:23 Appendectomy; hernia repair; Leg sx; Sinus SX; iw - Immunization history:: Client reports receiving the 2nd dose of the Covid vaccine, Flu vaccine is up to date. - Social history:: Smoking status: Patient/guardian denies using tobacco, but has a distant history of tobacco abuse. Screenin:29 [facility] ED Fall Risk Assessment (Adult) History of falling in the last 3 months, ll1 including since admission Yes- physiologic fall (2 pts) Impaired Gait Yes (1 pt) Score/Fall Risk Level 3 or more points = High Risk Oriented to surroundings, Maintained a safe environment, Educated pt \T\ family on fall prevention, incl call for assistance when getting out of bed, Hourly rounding (assess needs \T\ fall precautionary measures) done, Offered frequent toileting (1:1 observation), Remained with patient while ambulating, Utilized family, sitter, or virtual computer systems software architect as indicated. Abuse screen: Denies threats or abuse. Nutritional screening: No deficits noted. Tuberculosis screening: No symptoms or risk factors identified. Assessment: 13:27 General: Appears in no apparent distress. Behavior is calm, cooperative, appropriate ll1 for age. Pain: Complains of pain in buttocks. Neuro: Level of Consciousness is awake, alert, obeys commands, Oriented to person, place, time, situation, Appropriate for age Moves all extremities. Full function Gait is steady, Speech is normal, Reports a syncopal episode weakness. Cardiovascular: Rhythm is regular. Musculoskeletal: Reports tailbone pain. 13:51 Reassessment: No changes from previously documented assessment. Patient and/or family ll1 updated on plan of care and expected duration. Pain level reassessed. Patient is alert, oriented x 3, equal unlabored respirations, skin warm/dry/pink. 14:46 Reassessment: No changes from previously documented assessment. Patient and/or family ll1 updated on plan of care and expected duration. Pain level reassessed. Rehan Page at BS. 16:00 Reassessment: No changes from previously documented assessment. Patient and/or family ll1 updated on plan of care and expected duration. Pain level reassessed. Patient is alert, oriented x 3, equal unlabored respirations, skin warm/dry/pink. 16:41 Reassessment: No changes from previously documented assessment. Patient and/or family ll1 updated on plan of care and expected duration. Pain level reassessed. Patient is alert, oriented x 3, equal unlabored respirations, skin warm/dry/pink. Vital Signs: 13:20 BP 137 / 86; Pulse 75; Resp 16; Temp 97.6; Pulse Ox 96% on R/A; Weight 83.91 kg; Height iw 5 ft. 9 in. (175.26 cm); 15:08 BP 127 / 73; Pulse 62; Resp 20; Pulse Ox 96% on R/A; ll1 16:19 BP 119 / 72; Pulse 62; Resp 19; ll1 13:20 Body Mass Index 27.32 (83.91 kg, 175.26 cm) ED Course: 13:05 Patient arrived in ED. am2 13:06 Jose Chappell MD is Private Physician. am2 13:09 Rehan Horton PA is PHCP. cp 13:09 Anastacio Arellano DO is Attending Physician. cp 13:23 Triage completed. iw 13:24 Arm band placed on. iw 13:27 Eileen Chanel, ZACH is Primary Nurse. ll1 13:27 Patient placed in an exam room, on a stretcher. ll1 13:29 Patient has correct armband on for positive identification. Bed in low position. Call ll1 light in reach. Side rails up X 1. 13:45 Inserted saline lock: 22 gauge in right antecubital area, using aseptic technique. ll1 Blood collected. 14:04 XRAY Chest (1 view) In Process Unspecified. EDMS 14:13 XRAY Pelvis In Process Unspecified. EDMS 14:13 XRAY Hip LEFT 2 view In Process Unspecified. EDMS 14:28 CT Head C Spine In Process Unspecified. EDMS 14:48 SARS RAPID Sent. ap3 14:52 Wilbert Clayton MD is Hospitalizing Provider. cp 15:07 Mirza Estes MD is Hospitalizing Provider. cp 15:08 Kayden Estes MD is Hospitalizing Provider. cp 16:37 Zeyad Huang MD is Referral Physician. cp 16:42 No provider procedures requiring assistance completed. IV discontinued, intact, ll1 bleeding controlled, No redness/swelling at site. Pressure dressing applied. Administered Medications: No medications were administered Medication: 13:30 VIS not applicable for this client. ll1 Point of Care Testin:42 n/a ll1 Ranges: Outcome: 14:52 Decision to Hospitalize by Provider. cp 16:38 Discharge ordered by . cp 16:42 Discharged to home ambulatory. ll1 16:42 Condition: stable 16:42 Discharge instructions given to patient, Instructed on discharge instructions, follow up and referral plans. Demonstrated understanding of instructions, follow-up care. 16:42 Patient left the ED. ll1 Signatures: Dispatcher [employer] Deana Canela RN RN iw Rehan Horton PA PA cp Moreno, Amanda am2 Alma Rosa Oliveira RN RN ap3 Eileen Chanel RN RN ll1 Corrections: (The following items were deleted from the chart) 15:09 14:46 Reassessment: No changes from previously documented assessment. Patient and/or ll1 family updated on plan of care and expected duration. Pain level reassessed. Benedicto Page at ll1
--- NOTE | 2022-09-21 14:53 | EDPHYS ---
Physician Documentation [facility] Name: Jc Sarabia Age: 82 yrs Sex: Male : 1940 Arrival Date: 09/21/2022 Time: 13:05 Bed 8 Private MD: Jose Chappell B ED Physician Anastacio Arellano HPI: 09/21 13:35 This 82 yrs old Male presents to ER via Ambulatory with complaints of Syncope - last cp night, Hip Pain. 13:35 The patient has experienced syncope, lost consciousness. Onset: The symptoms/episode cp began/occurred last night. Duration: This was a single episode, that lasted an unknown period of time. Context: occurred at home, occurred while the patient was returning to bed from bathroom. Just prior to the episode the patient experienced no apparent symptoms. Associated injury: Other: left hip and left pelvis, pain. Associated signs and symptoms: Pertinent positives: urine incontinence, Pertinent negatives: abdominal pain, chest pain, confusion. 13:35 Current symptoms: Currently, the patient is not experiencing any symptoms. cp 13:35 Patient reports he did take prescribed Cialis and blood pressure medications last night.cp Historical: - Allergies: 13:23 No Known Allergies; iw - Home Meds: 13:23 tadalafil 20 mg oral tab 1 tab once daily [Active]; triamterene-hydrochlorothiazid iw 37.5-25 mg Oral tab 1 tab once daily [Active]; - PMHx: 13:23 Hypertension; iw - PSHx: 13:23 Appendectomy; hernia repair; Leg sx; Sinus SX; iw - Immunization history:: Client reports receiving the 2nd dose of the Covid vaccine, Flu vaccine is up to date. - Social history:: Smoking status: Patient/guardian denies using tobacco, but has a distant history of tobacco abuse. ROS: 13:40 Constitutional: Negative for body aches, chills, fever, poor PO intake. cp 13:40 Cardiovascular: Negative for chest pain, edema, palpitations. cp 13:40 Abdomen/GI: Negative for abdominal pain, vomiting, diarrhea, constipation. 13:40 : Positive for difficulty urinating, bladder incontinence 13:40 Eyes: Negative for injury, pain, redness, and discharge. cp 13:40 Neck: Negative for pain with movement, pain at rest, stiffness. 13:40 Respiratory: Negative for cough, shortness of breath, wheezing. 13:40 MS/extremity: Positive for pain, left posterior pelvis. 13:40 Neuro: Positive for syncope, Negative for altered mental status, dizziness, speech cp changes, weakness. 13:40 All other systems are negative. Exam: 13:45 Constitutional: The patient appears in no acute distress, alert, awake, comfortable, cp non-diaphoretic, non-toxic, well developed, well nourished. 13:45 Head/Face: Normocephalic, atraumatic. cp 13:45 Eyes: Periorbital structures: appear normal, Pupils: equal, round, and reactive to cp light and accomodation, Extraocular movements: intact throughout, Conjunctiva: normal, no exudate, no injection, Sclera: no appreciated abnormality, Lids and lashes: appear normal, bilaterally. 13:45 ENT: External ear(s): are unremarkable, Ear canal(s): are normal, clear, TM's: dullness, bilaterally, Nose: is normal, Mouth: Lips: moist, Oral mucosa: moist, Posterior pharynx: Airway: no evidence of obstruction, patent, swelling, is not appreciated, erythema, is not appreciated. 13:45 Neck: ROM/movement: is normal, is supple, without pain, no range of motions limitations, no meningismus. 13:45 Chest/axilla: Inspection: normal, Palpation: is normal, no crepitus, no tenderness. 13:45 Cardiovascular: Rate: normal, Rhythm: regular, Edema: is not appreciated, JVD: is not appreciated. 13:45 Respiratory: the patient does not display signs of respiratory distress, Respirations: normal, no use of accessory muscles, no retractions, labored breathing, is not present, Breath sounds: are clear throughout, no decreased breath sounds, no stridor, no wheezing. 13:45 Abdomen/GI: Inspection: abdomen appears normal, Palpation: abdomen is soft and non-tender, in all quadrants. 13:45 Back: pain, is absent, ROM is normal. 13:45 Musculoskeletal/extremity: Extremities: grossly normal except: noted in the left pelvic area: pain. 13:45 Neuro: Orientation: to person, place \T\ time. Mentation: is normal, Cerebellar function: Romberg testing is negative, normal finger to nose testing, Motor: moves all fours, strength is normal, Sensation: is normal. 13:58 ECG was reviewed by the Attending Physician. Vital Signs: 13:20 BP 137 / 86; Pulse 75; Resp 16; Temp 97.6; Pulse Ox 96% on R/A; Weight 83.91 kg; Height iw 5 ft. 9 in. (175.26 cm); 15:08 BP 127 / 73; Pulse 62; Resp 20; Pulse Ox 96% on R/A; ll1 16:19 BP 119 / 72; Pulse 62; Resp 19; ll1 13:20 Body Mass Index 27.32 (83.91 kg, 175.26 cm) iw MDM: 13:30 Patient medically screened. cp 16:38 Data reviewed: vital signs, nurses notes, lab test result(s), EKG, radiologic studies, cp CT scan, plain films. 16:38 Consideration of Admission/Observation Escalation of care including cp admission/observation considered. Management of patient was discussed with the following: Violin Restorer: DR Huang who will see patient in clinic next week. Independent interpretation of the following test(s) in the Emergency Department EKG: See my EKG interpretation above X-Ray: My interpretation is xrays of left hip and pelvis negative for fracture. Test considered but Not performed: Other Details cardiac echo. Care significantly affected by the following chronic conditions: Hypertension. Counseling: I had a detailed discussion with the patient and/or guardian regarding: the historical points, exam findings, and any diagnostic results supporting the discharge/admit diagnosis, lab results, radiology results, the need for outpatient follow up, a carpenter cradle and dolly, to return to the emergency department if symptoms worsen or persist or if there are any questions or concerns that arise at home. 09/21 13:31 Order name: Basic Metabolic Panel; Complete Time: 14: cp 09/21 14:26 Interpretation: Normal except: BUN 23; CRE 1.52; GFR 46. cp 09/21 13:31 Order name: CBC with Diff; Complete Time: 14:26 cp 09/21 13:31 Order name: Magnesium; Complete Time: 14:26 cp 09/21 13:31 Order name: NT PRO-BNP; Complete Time: 14:26 cp 09/21 13:31 Order name: PT-INR; Complete Time: 14:26 cp 09/21 13:31 Order name: Troponin HS; Complete Time: 14:26 cp 09/21 13:31 Order name: XRAY Chest (1 view); Complete Time: 14:26 cp 09/21 13:31 Order name: EKG; Complete Time: 13:31 cp 09/21 14:01 Order name: CT Head C Spine; Complete Time: 14:59 cp 09/21 14:01 Order name: XRAY Pelvis; Complete Time: 14:32 cp 09/21 14:01 Order name: XRAY Hip LEFT 2 view; Complete Time: 14:44 cp 09/21 14:33 Order name: SARS RAPID; Complete Time: 16:11 cp 09/21 15:00 Order name: Diet Regular; Complete Time: 15:00 cp 09/21 13:31 Order name: Cardiac monitoring; Complete Time: 13:38 cp 09/21 13:31 Order name: EKG - Nurse/Tech; Complete Time: 13:38 cp 09/21 13:31 Order name: IV Saline Lock; Complete Time: 13:47 cp 09/21 13:31 Order name: Labs collected and sent; Complete Time: 13:47 cp 09/21 13:31 Order name: O2 Per Protocol; Complete Time: 13:38 cp 09/21 13:31 Order name: O2 Sat Monitoring; Complete Time: 13:38 cp 09/21 15:50 Order name: Orthostatics cp EC:58 Rate is 64 beats/min. Rhythm is regular. ID interval is prolonged at 202 msec. QRS cp interval is normal. QT interval is normal. T waves are Inverted in lead aVR. Interpreted by me. Reviewed by me. Administered Medications: No medications were administered Point of Care Testin:42 n/a ll1 Ranges: Critical Glucose Levels:Adult <50 mg/dl or >400 mg/dl <40 mg/dl or >180 mg/dl Disposition: 16:58 Co-signature as Attending Physician, Anastacio Aerllano DO I reviewed the patient's care ms3 provided by Advanced Practice Provider \T\ agree w/ the diagnosis \T\ care plan. I personally saw the pt \T\ performed a substantive portion of the visit, incldng all aspects of the (History/Exam/Medical Decision Making). Disposition Summary: 09/21/22 16:38 Discharge Ordered Location: Home(09/21/22 16:38) cp Problem: new(09/21/22 16:38) cp Symptoms: have improved(09/21/22 16:38) cp Condition: Stable(09/21/22 16:38) cp Diagnosis - Syncope cp Followup: cp - With: Zeyad Huang MD - When: 2 - 3 days - Reason: Recheck today's complaints Discharge Instructions: - Discharge Summary Sheet cp - Syncope cp - Aspirin and Your Heart cp Forms: - Medication Reconciliation Form cp - Thank You Letter cp - Antibiotic Education cp - Prescription Opioid Use cp Signatures: Dispatcher [employer] EDMS Deana Valdez, RN RN iw Allan Rivera, BACK TENDER-C BACK TENDER-Cla1 Rehan Horton PA PA Anastacio Whitaker DO DO ms3 Corrections: (The following items were deleted from the chart) 15:10 14:52 Wilbert Clayton cp cp 16:17 14:52 Observation cp cp 16:17 14:52 Telemetry/MedSurg (observation) cp cp 16:17 14:52 Stable cp cp 16:17 14:52 new cp cp 16:17 14:52 have improved cp cp 16:17 14:52 Standard cp cp 16:17 14:52 cp cp 16:17 14:52 Syncope cp cp 16:17 15:10 Kayden Estes cp cp 09/22 14:03 09/21 16:58 ED course: . ms3 cp
--- NOTE | 2022-09-21 14:57 | RAD REPORT ---
EXAM DESCRIPTION: CT - [id number] - 09/21/2022 2:27 pm CLINICAL HISTORY: syncope, fall with head and neck injury COMPARISON: [id number] dated 06/13/2010 TECHNIQUE: Axial 5 mm thick images of the head were obtained. Axial 2 mm thick images of the cervic al spine were obtained with sagittal and coronal reconstruction images generated and reviewed. All CT scans are performed using dose optimization technique as appropriate and may include automated exposure control or mA/KV adjustment according to patient size. FINDINGS: No intracranial hemorrhage, mass, edema or acute intracranial finding. No suspicion for ac pechanga infarction. No cortical edema or sulcal effacement. Patient's atrophy and chronic ischemic change s are very minimal. Ventricles are normal size. Arterial and physiologic calcifications are present. Mastoid air cells are clear. Mucosal thickening or polyposis changes are present in each frontal sin us in the anterior ethmoid air cells. There is mucosal thickening or polyposis change along the floor of the left maxillary sinus. There is extensive paranasal surgical change with resection of the midd le turbinates and bilateral large antral windows. An acute sinus finding is not seen. No globe or orb it abnormality seen. Cervical body height and alignment are normal. C3-4 disc space narrowing is present progressive from the 2010 comparison. Posterior endplate spurring and sclerotic changes the posterior aspect of the en dplates noted. Bony foraminal encroachment is mild at this level. Slight wedging of the T1 body is st able from prior imaging. No fracture or acute bony abnormality. Central canal detail is inherently l imited. No paraspinal mass or hematoma. IMPRESSION: No hemorrhage, edema or acute CT Head finding. 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 No active or acute process suspe cted. Cervical spine degenerative change with no acute findings.
[2022-09-21 15:12] LABS: SARS-CoV-2 Antigen Rapid Res Negative (Negative)
--- NOTE | 2022-09-21 16:11 | P.CNS ---
Date of Consult: 09/21/22 Mr. Sarabia is an 82 yo M with history of HTN who presents after syncopal episode. He reports he woke up up in the middle of the night to go to the bathroom and was unable to go and as he was walking back to his bed, he passed out. He says he woke up on the floor and had urinated on himself. He does not remember falling. He says over the past few weeks he has had dizzy spells and feels a little 'woozy' which improve after he sits down. Patient takes triamterene-HCTZ for his BP but he does not take it everyday especially when his blood pressure is on the lower side. He takes vardenafil as needed for ED, and says his BP is lower after taking it as well. Yesterday, he took the triamterene-HCTZ in the AM and the vardenfail around 6:30pm. At bedside, vital signs are normal, patient feels at baseline besides tailbone pain from the fall. Imaging unremarkable. EKG wnl. Discussed case with hospitalist attending and ER providers. Episode likely related to hypotension due to vardenafil. Patient back to baseline and will be discharged to home by ER providers with outpatient followup.
[2022-09-21 16:46] VITALS: TEMP 97.6; O2SAT 96
[2022-09-21 16:49] VITALS: BP 119/72
--- NOTE | 2022-09-24 17:01 | EKG ---
Test Date: 2022-09-21 Test Time: 13:52:23 Alloy Weigher: ADALBERTO MEASUREMENT RESULTS: Intervals: Rate: 64 WV: 202 QRSD: 88 QT: 434 QTc: 447 [place]: P: 40 WV: 202 QRS: 19 T: 31 INTERPRETIVE STATEMENTS: Normal sinus rhythm Normal ECG Compared to ECG 06/02/2021 09:12:48 No significant changes Electronically Signed On 09-24-22 16:56:19 ACTIVE DIRECTORY SPECIALIST by Zeyad Huang
== END 2022-09-21 16:42 | disposition home or self-care (01) ==
LOC: ER 13:04
DX: R55 Syncope and collapse (principal); M25.552 Pain in left hip; R10.2 Pelvic and perineal pain; I10 Essential (primary) hypertension; Z20.822 Contact with and (suspected) exposure to COVID-19
CPT/HCPCS: 36415; 70450; 71045; 72125; 72170; 80048; 83735; 83880; 84484; 85025; 85610; 87811; 93005; 99284